=== PATIENT | female | born 1965 | race Caucasian/White ===

== ENCOUNTER → 2023-04-19 16:21 | Outpatient (REF) | payer BC, MEDICARE, SELFPAY | LOC: RAD 16:21 | PROVIDERS: ATTENDING PHYSICIAN Physician Assistant | DX: M79.89 Other specified soft tissue disorders (principal); Z98.890 Other specified postprocedural states; R60.0 Localized edema; M14.672 Charcot's joint, left ankle and foot | CPT/HCPCS: 73630; 93971 ==

== ENCOUNTER → 2023-04-30 12:00 | Outpatient (REF) | payer BC, MEDICARE, SELFPAY | LOC: DHSLP 12:00 | PROVIDERS: ATTENDING PHYSICIAN Physician Assistant | DX: G47.33 Obstructive sleep apnea (adult) (pediatric) (principal) | CPT/HCPCS: 95800 ==

== ENCOUNTER → 2023-10-29 13:16 | Outpatient (REF) | payer BC, MEDICARE, SELFPAY | LOC: HWRCS 13:16 | PROVIDERS: ATTENDING PHYSICIAN Family Medicine | DX: R06.02 Shortness of breath (principal); E11.610 Type 2 diabetes mellitus with diabetic neuropathic arthropathy; I10 Essential (primary) hypertension; Z12.31 Encounter for screening mammogram for malignant neoplasm of breast | CPT/HCPCS: 93005; 93306 ==

== ENCOUNTER → 2024-01-05 07:37 | Outpatient (REF) | payer BC, MEDICARE, SELFPAY | LOC: DHCBC/DCA 07:37 | PROVIDERS: ATTENDING PHYSICIAN Internal Medicine Cardiovascular Disease; FAMILY PHYSICIAN Family Medicine | DX: R06.00 Dyspnea, unspecified (principal) | CPT/HCPCS: 78452; 93017; A9500; J2785 ==

== ENCOUNTER → 2024-03-06 13:40 | Outpatient (REF) | payer BC, MEDICARE, SELFPAY | LOC: HWRAD 13:40 | PROVIDERS: ATTENDING PHYSICIAN Podiatrist Foot & Ankle Surgery; FAMILY PHYSICIAN Family Medicine | DX: L97.512 Non-pressure chronic ulcer of other part of right foot with fat layer exposed (principal); M14.671 Charcot's joint, right ankle and foot | CPT/HCPCS: 73630 ==

== ENCOUNTER → 2024-04-20 07:53 | Outpatient (REF) | payer BC, MEDICARE, SELFPAY | LOC: RAD 07:53 | PROVIDERS: ATTENDING PHYSICIAN Podiatrist Foot & Ankle Surgery; FAMILY PHYSICIAN Family Medicine | DX: E11.621 Type 2 diabetes mellitus with foot ulcer (principal); I70.234 Atherosclerosis of native arteries of right leg with ulceration of heel and midfoot; I70.235 Atherosclerosis of native arteries of right leg with ulceration of other part of foot; M86.171 Other acute osteomyelitis, right ankle and foot; M86.172 Other acute osteomyelitis, left ankle and foot | CPT/HCPCS: 73630; 93922; 93925 ==

== ENCOUNTER → 2024-09-04 12:23 | Outpatient (REF) | payer BC, SELFPAY | LOC: RAD 12:23 | PROVIDERS: ATTENDING PHYSICIAN Physician Assistant | DX: M79.662 Pain in left lower leg (principal); R60.0 Localized edema; Z86.718 Personal history of other venous thrombosis and embolism | CPT/HCPCS: 93971 ==

== ENCOUNTER 2024-10-18 05:01 | Inpatient (IN) | payer BC, MEDICARE, SELFPAY ==
[2024-10-17 21:13] VITALS: BP 192/89
[2024-10-18] VITALS (13 sets, daily range): BP systolic 129–189; BP diastolic 60–92; BMI 50.0; BMI 49.4
[2024-10-18 01:32] LABS: Hematocrit 33.2 % (37.0-47.0); Hemoglobin 11.4 g/dL (12.0-16.0); Mean Corp Hgb Conc. 34.3 g/dL (33.0-37.0); Mean Corpuscular Volume 78.1 fL (81.0-99.0); Nucleated Red Blood Cells % 0 %; Platelet Count 199 10^3/uL (130-400); Red Cell Dist. Width 15.4 % (11.5-14.5)
[2024-10-18 01:56] LABS: ALT (SGPT) 20 U/L (0-35); AST (SGOT) 30 U/L (14-36); Albumin 3.8 g/dl (3.5-5.0); Alkaline Phosphatase 92 U/L (38-126); Blood Urea Nitrogen 26 mg/dl (7-17); Calcium 8.5 mg/dl (8.4-10.2); Carbon Dioxide 26 mmol/L (22-30); Chloride 101 mmol/L (98-107); Estimated Creatinine Clearance 75 ml/min; Glucose 180 mg/dl (70-99); Potassium 4.5 mmol/L (3.5-5.1); Sodium 134 mmol/L (135-145); Total Protein 6.5 g/dl (6.3-8.2); eGFR 51.82
--- NOTE | 2024-10-18 02:36 | ED.GENMED ---
History of Present Illness
General
Chief Complaint: Musculo-Skeletal Complaint
Source: patient
Exam Limitations: none
Time Seen by Provider: 10/18/24 02:14
Nursing documentation reviewed up to this point in time: agreed with
History of Present Illness
History of Present Illness:
Note:
CHIEF COMPLAINT(S)
Right foot ulcer with swelling and fever.
HISTORY OF PRESENT ILLNESS
The patient is a 59-year-old female with a history of diabetes, presenting with a right foot ulcer that has been persistently swollen and recently developed fever. The ulcer location is at the edge of the right fifth toe. She has been under the care
of Dr. Shelby Levin for previous issues with other toes. The patient mentioned that the swelling has been present on and off for a while, specifically in relation to the ulcer. She reports being on antibiotics for a recent urinary tract
infection, but not specifically for the foot condition. The ulcerated area on the right fifth toe is notably swollen, and she has previously had issues with balance due to tendon cuts to her toes. She expressed concern about the possibility of a
bone infection.
PAST MEDICAL AND SURGICAL HISTORY
The patient has a significant history of diabetes managed with insulin since 2005.
SOCIAL DETERMINANTS AFFECTING HEALTH
The patient experiences difficulty with balance due to tendon cuts, which may impact mobility and fall risk.
MEDICATIONS
The patient is currently on an antibiotic for a urinary infection and on insulin for diabetes management.
REVIEW OF SYSTEMS
- Skin: Presence of an ulcer on the right fifth toe with noted swelling and fever.
- Respiratory: Reports no trouble breathing, though she experiences windedness on exertion.
- Cardiovascular: No leg swelling reported.
- Gastrointestinal: No issues reported.
- Musculoskeletal: Reports of previous balance issues due to tendon cuts.
PHYSICAL EXAM
General: Alert, no acute distress.
Skin: Ulcer present on the right fifth toe with associated swelling.
Cardiovascular: No edema in left extremities.
Respiratory: Respirations are non-labored.
Gastrointestinal: Abdomen nondistended.
Musculoskeletal: Noticeable swelling and ulceration of the right fifth toe. Previous surgical intervention with tendon cuts affecting balance.
Neurological: No focal neurological deficit observed.
PROBLEM LIST
Acute Problems:
- Right foot ulcer with swelling and suspected infection.
- Fever associated with right foot ulcer.
Chronic Problems:
- Diabetes mellitus, insulin-dependent.
PLAN
- Obtain x-ray imaging of the right foot to evaluate for potential osteomyelitis.
- Initiate intravenous antibiotics to address suspected infection.
- Admission to the hospital for further management and monitoring of the infection.
DIFFERENTIAL DIAGNOSIS
The Differential Diagnosis includes, in no particular order and is not limited to:
- Osteomyelitis
- Diabetic foot infection
- Cellulitis
- Peripheral arterial disease
- Venous insufficiency
- Neuropathy-related ulcer
- Charcot foot
- Septic arthritis
- Gout
- Thrombophlebitis
CARE-UPDATE
10/18/24 - 02:51
Patient admitted under internal medicine, hospitalist service for diabetic foot infection involving the right toe with suspected osteomyelitis. Initiated on IV zosyn and Vancomycin. Monitor for signs of improvement or complications such as systemic
infection. Potential surgical consultation if no improvement observed with medical management. Continue blood glucose control and monitor renal function due to antibiotic regimen.
Disposition:
SUMMARY OF ENCOUNTER
The patient, a 59-year-old female with a history of diabetes, presented to the emergency department with an ulcer on the right fifth toe, accompanied by swelling and fever. Her medical history includes insulin-dependent diabetes and previous tendon
cuts affecting balance. Concern for a possible bone infection prompted further evaluation. An x-ray was ordered to assess for potential osteomyelitis, and intravenous antibiotics were initiated to address the suspected infection.
DISPOSITION
Admit to hospitalist service for further management of diabetic foot infection and suspected osteomyelitis.
ASSESSMENT
Suspected diabetic foot infection with associated fever and potential for osteomyelitis.
EMERGENCY TREATMENTS ADMINISTERED
Initiated intravenous antibiotics with zosyn and Vancomycin to treat the suspected infection.
MANAGEMENT OF THE PATIENTS CARE WAS DISCUSSED WITH
Hospitalist service for continuation of care in the hospital setting.
PLAN
Hospital admission for intravenous antibiotic therapy, monitoring for systemic signs of infection, and potential surgical consultation if medical management does not lead to improvement. Continue strict blood glucose control to aid in the healing
process.
INDEPENDENT REVIEW OF LABS AND INTERPRETATION OF TESTS
My independent review of x-rays indicates evaluation for osteomyelitis.
MEDICATION RECONCILIATION
Intravenous zosyn and Vancomycin were administered to target the suspected foot infection.
MEDICAL DECISION MAKING
- Number and Complexity of Problems Addressed: Chronic conditions affecting care include diabetes mellitus requiring insulin therapy. Differential diagnosis includes osteomyelitis, diabetic foot infection, cellulitis, peripheral arterial disease,
neuropathy-related ulcer, and Charcot foot.
- Data:
Category 1:
Lab tests and imaging ordered and reviewed included x-ray of the right foot to evaluate for potential osteomyelitis.
Category 3:
Discussion of management with hospitalist for inpatient care coordination.
- Risk: The high risk of complications associated with a diabetic foot infection, potential progression to osteomyelitis, and the need for intravenous antibiotics mandated hospitalization for effective management.
DIAGNOSIS
Right diabetic foot ulcer with suspected infection (ICD-10: E11.621), fever (ICD-10: R50.9), suspected osteomyelitis (ICD-10: M86.9).
Past History
Past History
ED Past Medical History: Asthma and IDDM
ED Past Surgical History: Cholecystectomy, and Other (Hernia repair )
Social History
Tobacco: Non-smoker
Alcohol: None
Drug: None
Personal:
Living: with family
Employment: Employed
Family History
Family History: Diabetes and Other (Noncontributory )
Phy Exam
Physical Exam
Physical Exam:
.
Course
Orders/Labs/Results
Orders:
Orders
10/17/24 21:18
Complete Blood Count/With Diff Urgent
Comprehensive Metabolic Panel Urgent
Lactic Acid Urgent
Blood Culture Urgent
RUBENS Source: Blood/Venous
Specimen Description:
10/18/24 02:27
CR Foot - Right Min 3 Views Urgent
Comment:
Reason For Exam: right foot swelling, 5th toe infection
10/18/24 02:47
Piperacillin/Tazo 4.5 Gram [Zosyn] 4.5 gram in 100 ml IV NOW
Vancomycin [Vancocin] 2,000 mg 0.9% Sodium Chloride 500 ml [Nss] 500 ml IV NOW
Abnormal Lab Results
10/18/24
01:21
Hgb 11.4 L g/dL
(12.0-16.0)
Hct 33.2 L %
(37.0-47.0)
MCV 78.1 L fL
(81.0-99.0)
MCH 26.8 L pg
(27.0-31.0)
RDW 15.4 H %
(11.5-14.5)
Neutrophils % 78.6 H %
(42.2-75.2)
Lymphocytes % 15.2 L %
(20.5-51.1)
Sodium 134 L mmol/L
(135-145)
BUN 26 H mg/dl
(7-17)
Creatinine 1.2 H mg/dL
(0.6-1.0)
Glucose 180 H mg/dl
(70-99)
Total Bilirubin 1.4 H mg/dl
(0.2-1.3)
10/18/24 01:21
10/18/24 01:21
Vital Signs
Initial and Last Documented VS:
Initial Vital Signs
Temp Pulse Resp BP Pulse Ox
99.3 F 106 20 192/89 99
10/17/24 21:13 10/17/24 21:13 10/17/24 21:13 10/17/24 21:13 10/17/24 21:13
Last Documented Vital Signs
Temp Pulse Resp BP Pulse Ox
99.3 F 98 23 175/69 93
10/17/24 21:13 10/18/24 02:00 10/18/24 02:00 10/18/24 01:00 10/18/24 02:36
*Pulse Oximetry
SaO2: 93
Oxygen Mode of Delivery: Room air
Patient hypoxic: no
*Critical Care Note
Total Time (30-74mins, 75-104mins- exclusive of procedures): Not Applicable
ED Attending Note
-
Portions of this chart may have been created with voice recognition software.� Occasional wrong word or��sound alike� substitutions may have occurred due to the inherent limitations of voice recognition software.
Discharge Plan
Departure
Patient Disposition: Admit
Date of Disposition: 10/18/24
Time of Disposition: 02:46
Admit to: Med/Surg
Presentation/result/management discussed w/ accepting MD/DO: Hospitalist
Patient with high blood pressure during this ER visit?: Yes
Condition: Fair
Discharge Problem:
Diabetic infection of right foot
Prescriptions:
No Action
gabapentin 300 MG capsule
600 mg PO TID
lisinopril 20 mg Tablet
20 mg PO DAILY
chlorthalidone 25 mg Tablet
12.5 mg PO DAILY
citalopram 20 mg Tablet
20 mg PO DAILY
levothyroxine 50 mcg Tablet
50 mcg PO DAILY
insulin lispro [Humalog KwikPen Insulin] 100 unit/mL Insulin Pen
22 unit SC TID
Patient Comments:
Patient takes 22-28 units usually.
insulin glargine [Lantus Solostar U-100 Insulin] 100 unit/mL (3 mL) Insulin Pen
36 unit SC QPM
rosuvastatin 40 mg Capsule, Sprinkle
40 mg PO DAILY
simethicone [Gas Free Extra Strength] 125 mg Capsule
125 mg PO DIRECTED
bisacodyl [Dulcolax (bisacodyl)] 5 mg Tablet,Delayed Release (Dr/Ec)
5 mg PO DIRECTED
Linzess 72 mcg Capsule
72 mcg PO DIRECTED
Patient Comments:
Patient was instructed to take 3 days prior daily.
Sutab 1.479-0.188- 0.225 gram Tablet
PO DIRECTED
Referrals:
Joy Muller MD [Family Provider, Family Practice]
Interventions
Interventions:
*Risk Screen - Suicide Last Done: 10/17/24 21:17
*General Assessment Last Done: 10/18/24 01:03
*Neglect/Abuse Screening Last Done: 10/17/24 21:17
*ED- Fall Risk Assessment Last Done: 10/18/24 01:03
*ED COVID-19 Vaccine History Last Done: 10/18/24 01:03
ED-Musculoskeletal Assessment Last Done: 10/18/24 01:02
Discharge Date and Time
Print Language: MALTESE
[2024-10-18] MEDS: ZOSYN 100 IV (03:09)
[2024-10-18] MEDS: VANCOCIN 540 MG IV (03:53)
--- NOTE | 2024-10-18 04:46 | HPS.HSE ---
Family Physician
-
Family Physician: Joy Muller
Chief Complaint
-
R Foot Wound
History of Present Illness
Patient is a 59y F with PMH significant for Charcot foot, DM-II, morbid obesity and DIONNA who presents to ED complaining of R foot wound. Patient states that she has Charcot foot bilaterally and has been followed by Podiatry for foot wounds on
either foot since February 2024. Most recently, her L foot is healing very well and most of the wound care focus has been on a wound on the lateral aspect of the R foot. She is seen by Podiatry every two weeks for evaluation. Family assists her
with dressing changes at home daily. Patient states that she felt chilled yesterday and thought it was due to sitting near the AC unit. Today she felt fatigued and generally poor. Her son changed her dressing and a large amount of grossly
purulent discharge was expressed from the wound. Patient states she had headache, dizziness, and chills. She spoke with Dr. Levin and was advised to present to the ED for further evaluation.
Medical History
Past Medical History
Past Medical History: Reports Other
Additional Past Medical History:
Charcot Joint Bilaterally
DM-II
Morbid Obesity
Uterine Cancer
Hypothyroidism
Migraine Headaches
Ventral Abdominal Hernia
Past Surgical History: Reports Other
Additional Past Surgical History:
D&C
Hysterectomy
Cholecystectomy
Multiple Ventral hernia Repairs
Labial Cyst excision
Left Foot ORIF with Retained Hardware
Social History
Tobacco: Non-smoker
Alcohol: None
Drug: None
Family History
Family History: Not pertinent
Allergies / Home Medications
Allergies reflects when Allergies were last updated in [employer].
Home Medications with original date entered in [employer]
Allergy/Medication List:
Allergies
Allergy/AdvReac Type Severity Reaction Status Date / Time
adhesive tape Allergy Unknown Blistering Verified 10/17/24 21:15
skin
Home Medications
insulin glargine 100 unit/mL (3 mL) subcutaneous pen (Lantus Solostar U-100 Insulin) 33 unit SC QPM 07/07/22
insulin lispro 100 unit/mL subcutaneous pen (Humalog KwikPen (U-100) Insulin) 22 unit SC TID 07/07/22
levothyroxine 50 mcg tablet 50 mcg PO DAILY 07/07/22
lisinopril 20 mg tablet 30 mg PO DAILY 07/07/22
evolocumab 140 mg/mL subcutaneous pen injector (Repatha SureClick) 140 mg SC Q2W 10/18/24
ezetimibe 10 mg tablet 10 mg PO DAILY 10/18/24
rosuvastatin 40 mg tablet 40 mg PO DAILY 10/18/24
torsemide 20 mg tablet 20 mg PO BID 10/18/24
Review of Systems
-
History Source: Patient
A 12 point ROS was completed and negative except as noted: Yes
Constitutional: Reports Fatigue and Chills; Denies Fever
EENT: Denies Sore Throat
Respiratory: Denies Cough or Trouble Breathing
Cardiac: Denies Chest Pain or Palpitations
Abdomen/GI: Denies Abdominal Pain, Nausea, Vomiting or Diarrhea
: Denies Dysuria, Frequency or Flank Pain
Musculoskeletal: Reports Edema; Denies Joint Pain
Skin: Reports Other (Wound R foot)
Neurological: Reports Dizzy, Headache and Weakness
Psych: Denies Depression or Anxiety
Physical Exam
Vital Signs
Vital Signs
Temp Pulse Resp BP Pulse Ox
99.3 F 101 18 129/62 97
10/17/24 21:13 10/18/24 03:12 10/18/24 03:12 10/18/24 04:00 10/18/24 04:00
Physical Exam
General: Other (59y F in no acute distress.)
HEENT: Moist mucous membranes and Other (Thick neck.)
Respiratory: Other (Decreased at bases - otherwise clear)
Cardiac: S1/S2, Regular Rhythm and Murmur (II/ KURT)
GI: Soft, Non Tender, Non Distended and Normal Bowel Sounds
Musculoskeletal: Other (b/l LE edema. R foot with dressing over lateral aspect of the foot - no strikethrough. R lower leg warm with mild erythema.)
Neuro: AO x 3
Laboratory Results
-
10/18/24 01:21
10/18/24 01:21
Laboratory Results
Lactic Acid 1.4 mmol/L (0.7-2.0) 10/18/24 01:42
Total Bilirubin 1.4 mg/dl (0.2-1.3) H 10/18/24 01:21
AST 30 U/L (14-36) 10/18/24 01:21
ALT 20 U/L (0-35) 10/18/24 01:21
Alkaline Phosphatase 92 U/L (38-126) 10/18/24 01:21
Impression/Plan
-
A/P: Patient is a 59y F with PMH significant for DM-II, Charcot foot and morbid obesity who presents to ED complaining of R foot wound and shaking chills.
Diabetic Foot Wound
Sepsis secondary to the above
Charcot Joint
- Admit for further evaluation and treatment.
- Patient presents with tachycardia, tachypnea and R foot wound with purulent discharge.
- Empiric abx for now and follow for any operative culture data.
- IVFs support, antipyretics, etc.
- Podiatry evaluation for additional recommendations / possible I&D.
DM-II
- Stable. Continue basal insulin at decreased dose for now.
- Follow glucose and cover with SSI as needed.
- Update A1C.
Chronic Lymphedema
- Hold diuretic regimen acutely given sepsis.
Morbid Obesity
DIONNA on CPAP
- Affects all aspects of care.
- Encourage healthy diet and increased activity with goal of weight loss.
- Continue nightly PAP therapy.
DVT Prophylaxis: Lovenox
Code Status: Full
[2024-10-18] MEDS: TYLENOL 650 MG PO ×2 (07:21→16:09)
--- NOTE | 2024-10-18 08:05 | W.PN.HOSP.TC ---
Today's Communication/Plan
-
Continue antibiotics
Recheck AM Labs
Assessment / Plan
Assessment / Plan
Physical Exam
General: Not in acute distress
HEENT: Normocephalic. Moist mucous membranes
Respiratory: Other (Decreased at bases - otherwise clear)
Cardiac: S1/S2, Regular Rhythm and Murmur (II/ KURT)
GI: Soft, Non Tender, Non Distended and Normal Bowel Sounds
Musculoskeletal: Other (b/l LE edema. R foot with dressing over lateral aspect of the foot. R lower leg warm with mild erythema.)
Neuro: AAO x 3
Assessment/Plan
59 y/o female with past medical history significant for Charcot foot, DM-II, morbid obesity and DIONNA who presented to [facility] ED complaining of right foot wound. Patient stated that she has Charcot foot bilaterally and has been followed by Podiatry for
foot wounds on either foot since February 2024. Most recently, her L foot is healing very well and most of the wound care focus has been on a wound on the lateral aspect of the R foot. She is seen by Podiatry every two weeks for evaluation. Family
assists her with dressing changes at home daily. Patient stated that she felt chilled the day before coming in, and thought it was due to sitting near the AC unit. On 10/17/24, she felt fatigued and generally poor. Her son changed her dressing and
a large amount of grossly purulent discharge was expressed from the wound. Patient stated she had headache, dizziness, and chills. She called her bridge painter Dr. Levin and was advised to present to the ED for further evaluation.
Diabetic Foot Wound
Sepsis secondary to the above
Charcot Joint
- Patient presented with tachycardia, tachypnea and R foot wound with purulent discharge.
- Continue Vancomycin and Zosyn
- IVFs support, antipyretics, etc.
- Podiatry evaluation for additional recommendations / possible I&D.
- ID consulted
Suspected Acute Kidney Injury
- Continue IV fluids
- Hold home Lisinopril for now
- PRN Hydralazine added
- Will consider adding Amlodipine
DM-II
- Continue basal insulin at decreased dose and also continued moderate sliding scale Insulin.
- Follow glucose and cover with SSI as needed.
- Goal glucose in hospital 140-180, will strive to achieve that goal but will also need to prevent hypoglycemia
Chronic Lymphedema
- Hold diuretic regimen acutely given sepsis.
Morbid Obesity
DIONNA on CPAP
- Affects all aspects of care.
- Encourage healthy diet and increased activity with goal of weight loss.
- Continue nightly PAP therapy.
DVT Prophylaxis: Lovenox
Code Status: Full Code
Anticipated Discharge: > 48 hours
Subjective/Interval History
-
Date of Service: October 18, 2024
Patient was seen and examined. She reported having fever, but denied any other significant symptoms or complaints.
Objective Data
-
Labs:
Laboratory Results
10/18/24
01:21
WBC 8.2
Hgb 11.4 L
Hct 33.2 L
Plt Count 199
Sodium 134 L
Potassium 4.5
Chloride 101
Carbon Dioxide 26
BUN 26 H
Creatinine 1.2 H
Glucose 180 H
Calcium 8.5
Total Bilirubin 1.4 H
AST 30
ALT 20
Alkaline Phosphatase 92
Vital Signs:
Vital Signs
Temp Pulse Resp BP Pulse Ox
99.3 F 101 18 185/80 92
10/17/24 21:13 10/18/24 05:58 10/18/24 05:58 10/18/24 06:00 10/18/24 06:00
--- NOTE | 2024-10-18 09:34 | PHA.VAN.IN ---
Addendum entered and electronically signed by Bridgette Rivera Ryan 10/18/24 10:00:
Agree with assessment and plan
Original Note:
Assessment
- Assessment
Renal Function: SCR Appears Elevated from baseline
Concomitant Antimicrobials: piperacillin/tazobactam
Historical Micro: History of MRSA infection (L foot wound, October 2014)
Plan
- Plan
Initial / Loading Dose: received 2000mg load at 0353 this morning
Maintenance Regimen: give 1250mg x1 dose this evening, then dose by level starting tomorrow AM
Monitoring: Random level 10/19 06
Pharmacokinetics Vancomycin I
- -
Patient Age: 59
Patient Sex: Female
Vancomycin Day #: 1
Indication: Skin And Soft Tissue
Requesting Provider: Dr. Church
Pertinent Antimicrobial Allergies:
NKDA
Height / Weight:
Height 5 ft 7 in
Actual Weight 142.972 kg
Pertinent Past Medical History: T2DM, BMI ~49
- Vital Signs / Lab Results
Temp Pulse Resp BP Pulse Ox
98.8 F 95 20 157/79 95
10/18/24 08:00 10/18/24 08:00 10/18/24 08:00 10/18/24 08:00 10/18/24 08:00
Lab Results - Hematology
10/18/24
01:21
WBC 8.2
Lab Results - Chemistry
10/18/24
01:21
BUN 26 H
Creatinine 1.2 H
Estimated Creat Clear 75
Albumin 3.8
10/18/24
01:42
Lactic Acid 1.4
--- NOTE | 2024-10-18 10:45 | CON.ID ---
Consultation
-
Date/Time Consultation Requested: October 18, 2024 0808
Date/Time Consultation Performed: October 18, 2024 1045
Requesting Provider: Dr. Alexander Corea
Performing Provider: Dr. Sheri Prajapati
Reason for Consultation: Foot infection
Chief Complaint / Past History
Chief Complaint
Wound drainage
History of Present Illness
59-year-old female with history of diabetes mellitus, neuropathy, Charcot arthropathy, chronic foot wounds who presented to the hospital last night due to worsening right foot wound. When her son changed the dressing, she noted purulent drainage
from the right fifth toe wound. She had chills with subjective fever. She was therefore instructed to come to the ER. Her glucose has been high lately. No other complaints..
Past History
Additional Past Medical History:
Diabetes mellitus type 2
neuropathy
Bilateral Charcot arthropathy
Hypothyroidism
Migraine headaches
Class III obesity BMI 49
Sleep apnea on CPAP
History of left foot ORIF
Uterine cancer status post hysterectomy
Ventral hernia repair
Cholecystectomy
Allergy History:
adhesive tape Allergy (Unknown, Verified 10/17/24 21:15)
Blistering skin
Medications Reviewed: Yes
Current Antibiotics:
Vancomycin
Zosyn
Social History
Tobacco: Non-Smoker
Alcohol: None
Drug: None
Living: With Family
Family History
Family History: Not Pertinent
Review of Systems
Review of Systems
General: Fever, Chills and Change in Appetite
HEENT: Negative Sinus Problems or Headache
Cardiovascular: Negative Chest Pain
Respiratory: Negative Dyspnea or Cough
Gasteroenterology: Negative Nausea, Vomiting or Diarrhea
Genital / Urological: Negative Dysuria or Flank Pain
Endocrine: Weakness
All systems: All other systems were reviewed and were negative
Vital Signs
Temp Pulse Resp BP Pulse Ox
98.8 F 95 20 157/79 95
10/18/24 08:00 10/18/24 08:00 10/18/24 08:00 10/18/24 08:00 10/18/24 08:00
Physical Exam
Physical Exam
Constitutional: No Acute Distress and Comfortable
Eyes: No Conjunctival Hemorrhage and Sclera Anicteric
Cardiovascular: Regular Rate and S1/S2
Pulmonary: Clear
Gastrointestinal: Soft, Non Tender, Non Distended and Normal Bowel Sounds
Extremities: Negative Edema
Wound: Other (Right fifth toe + erythema/edema, wound on lateral part of toe with scan yellow drainage; 2nd wound on 5th lateral met head dry)
Neurological: AO x 3
Lab / Diagnostic Study Results
10/18/24 01:21
10/18/24 01:21
Abs Immat Gran (auto) 0.0 10^3/uL (0-0.05) 10/18/24 01:21
Absolute Neuts (auto) 6.4 10^3/uL (1.4-6.5) 10/18/24 01:21
Absolute Lymphs (auto) 1.2 10^3/uL (1.2-3.4) 10/18/24 01:21
Absolute Monos (auto) 0.4 10^3/uL (0.1-0.6) 10/18/24 01:21
Absolute Basos (auto) 0.0 10^3/uL (0-0.2) 10/18/24 01:21
Immature Gran % 0.4 % (0-0.5) 10/18/24 01:21
Neutrophils % 78.6 % (42.2-75.2) H 10/18/24 01:21
Lymphocytes % 15.2 % (20.5-51.1) L 10/18/24 01:21
Monocytes % 5.3 % (1.7-9.3) 10/18/24 01:21
Eosinophils % 0.1 % (0-6) 10/18/24 01:21
Basophils % 0.4 % (0-2) 10/18/24 01:21
Lactic Acid 1.4 mmol/L (0.7-2.0) 10/18/24 01:42
Microbiology Results
Micro:
10/18/24 09:12 Blood Culture - Pending
Blood/Venous
10/18/24 01:42 Blood Culture - Pending
Blood/Venous
10/18/24 R foot XRAY: No gross acute focal cortical bony destructive process.
Assessment / Plan
# Right 5th toe diabetic ulcer with infection and purulent cellulitis
- Podiatry to eval
- Ordered arterial duplex
- Agree with Vancomycin and Zosyn for now.
- Follow temps/wbc.
- Recommend tight glucose control
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
Diabetes mellitus type 2
neuropathy
Bilateral Charcot arthropathy
Hypothyroidism
Migraine headaches
Class III obesity BMI 49
Sleep apnea on CPAP
History of left foot ORIF
Uterine cancer status post hysterectomy
Ventral hernia repair
Cholecystectomy
[2024-10-18] MEDS: NOVOLOG FLEXPEN-MODERATE RESISTANCE SC (11:04)
[2024-10-18] MEDS: NSS 1000 IV (11:12)
[2024-10-18] MEDS: ZOSYN 50 IV ×3 (11:13→20:15)
[2024-10-18] MEDS: LOVENOX 40 MG SC ×2 (11:16→20:16)
--- NOTE | 2024-10-18 12:30 | CM ---
Reviewed the chart notes and spoke with the patient at the bedside. The patient resides with her spouse and son in a split level home with one step to enter from driveway. The patient has a rollator, shower chair, shower rails, CPAP, and cane.
The patient has not been to SNF. The patient confirmed her pharmacy of choice is the [facility]. CM continues to be available to patient/family and is monitoring medical plan for needs at discharge.
Plan: Discharge plans will depend on the patient's progress.
--- NOTE | 2024-10-18 12:33 | WOUNDNOTE ---
RIGHT 5TH TOE, RIGHT MTH FOOT
--- NOTE | 2024-10-18 12:34 | WOUNDNOTE ---
LEFT 5TH TOE
--- NOTE | 2024-10-18 12:34 | WOUNDNOTE ---
BILATERAL LOWER LEGS
--- NOTE | 2024-10-18 12:35 | WOUNDNOTE ---
[facility] RN note: Patient admitted with diabetic foot infection.
See H&P for complete history.
PMH:59-year-old female with history of diabetes mellitus, neuropathy, Charcot arthropathy, chronic foot wounds who presented to the hospital last night due to worsening right foot wound.
Wound Location and type/assessment: Patient admitted with: R 5th toe lateral diabetic wound, drainage cloudy, residual old blister surrounding. Wound culture done as requested, nurse Romana given and will send to lab. Distal to open wound is dry
eschar. L lateral foot with chronic callus, no drainage. Heels intact, + pedal pulses audible with Doppler. Turns self in bed, sacrum intact. Patient states she goes to Dr. Levin for foot wounds, Podiatry consulted.
Appetite: Good.
Pressure redistribution devices in place: Accumax
Plan: Local wound care applied, defer to podiatry for additional wound and offloading management, will assist as needed. Will confirm orders with hospitalist and updated nurse.
Updated care plan and will follow as needed.
Note to case management of equipment requested for discharge: none
Recommend follow up with Podiatry.
[2024-10-18 12:44] LABS: Glucose - Point of Care 240 mg/dl (70-99)
[2024-10-18] MEDS: NOVOLOG FLEXPEN-MODERATE RESISTANCE 3 UNITS SC (14:54)
--- NOTE | 2024-10-18 15:41 | CON.MD ---
Consultation - Medical
-
Patient is a 59y diabetic Female well known to me for treatment of multiple DFU with PMH significant for Charcot foot, NIDDM with profound peripheral neuropathy who called 10/17/24 at 8 pm and stated she had shaking chills, LAUREANO, Nausea and general
malaise and purulence was from the right foot wound that had previously been nearly healed. I recommended she present to ED for admission for IV abt, and possible debridement.
Medical History
Past Medical History
Past Medical History: Reports Other
Additional Past Medical History:
Charcot Joint Bilaterally
DM-II
Morbid Obesity
Uterine Cancer
Hypothyroidism
Migraine Headaches
Ventral Abdominal Hernia
Past Surgical History: Reports Other
Additional Past Surgical History:
D&C
Hysterectomy
Cholecystectomy
Multiple Ventral hernia Repairs
Labial Cyst excision
Left Foot ORIF with Retained Hardware
Social History
Tobacco: Non-smoker
Alcohol: None
Drug: None
Lives at home with family
Family History
Family History: Not pertinent
Allergies / Home Medications
Allergies reflects when Allergies were last updated in [employer].
Home Medications with original date entered in [employer]
Allergy/Medication List:
Allergies
Allergy/AdvReac Type Severity Reaction Status Date / Time
adhesive tape Allergy Unknown Blistering Verified 10/17/24 21:15
skin
Home Medications
insulin glargine 100 unit/mL (3 mL) subcutaneous pen (Lantus Solostar U-100 Insulin) 33 unit SC QPM 07/07/22
insulin lispro 100 unit/mL subcutaneous pen (Humalog KwikPen (U-100) Insulin) 22 unit SC TID 07/07/22
levothyroxine 50 mcg tablet 50 mcg PO DAILY 07/07/22
lisinopril 20 mg tablet 30 mg PO DAILY 07/07/22
evolocumab 140 mg/mL subcutaneous pen injector (Repatha SureClick) 140 mg SC Q2W 10/18/24
ezetimibe 10 mg tablet 10 mg PO DAILY 10/18/24
rosuvastatin 40 mg tablet 40 mg PO DAILY 10/18/24
torsemide 20 mg tablet 20 mg PO BID 10/18/24
Review of Systems
-
History Source: Patient
A 12 point ROS was completed and negative except as noted: Yes
Constitutional: Reports Fatigue and Chills; Denies Fever
EENT: Denies Sore Throat
Respiratory: Denies Cough or Trouble Breathing
Cardiac: Denies Chest Pain or Palpitations
Abdomen/GI: Denies Abdominal Pain, Nausea, Vomiting or Diarrhea
: Denies Dysuria, Frequency or Flank Pain
Musculoskeletal: Reports Edema; Denies Joint Pain
Skin: Reports Other (Wound R foot)
Neurological: Reports Dizzy, Headache and Weakness
Psych: Denies Depression or Anxiety
Physical Exam
Vital Signs
Vital Signs
Temp Pulse Resp BP Pulse Ox
99.3 F 101 18 129/62 97
10/17/24 21:13 10/18/24 03:12 10/18/24 03:12 10/18/24 04:00 10/18/24 04:00
Physical Exam
General: Other (59y F in no acute distress.)
LE focused:
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 Wound right 5th toe has dishwater brown drainage, ecchymosis to the plantar sulcus.
Lateral 5th met wound is necrotic and unstageable- the wounds do not appear to probe beyond fascia there is no bone palpable or exposed. no undermining or tunneling. left 5th toe wound is also intact but cyanotic. Deformity of B/L feet second to
charcot arthropathy. Absent protective sensation.
Laboratory Results
-
Laboratory Results
Lactic Acid 1.4 mmol/L (0.7-2.0) 10/18/24 01:42
Total Bilirubin 1.4 mg/dl (0.2-1.3) H 10/18/24 01:21
AST 30 U/L (14-36) 10/18/24 01:21
ALT 20 U/L (0-35) 10/18/24 01:21
Alkaline Phosphatase 92 U/L (38-126) 10/18/24 01:21
Impression/Plan:
1- NIDDM w/poor BS control
2-NIDDM with DPN/LOPS
3-B/L foot deformity/ charcot arthropathy
4-Gait dysfunction
5-Chronic non healing DFU B/L 5th toes and right lateral 5th MTH with acute infection/cellulitis
- Wounds were cleansed and sharply and excisionally debrided today at bedside with #11 scalpel blade through epidermis, dermis into sq and fascia. Wounds again cleansed and deep cx taken. There is no tunneling or deep abscess noted. Bleeding
controlled with pressure. Wounds redressed with vashe wet dressing. Will begin mupirocin ointment to wounds post vashe dressing to all wounds. Offload lateral sides of feet with pillows under calves.
- XRAYs reviewed and appear questionable for OM to the 5th met head and base of the 5th toe, MRI ordered.
-Continue IV ABT for now, will follow for cultures
Consultation
-
Date/Time Consultation Requested: 10/18/2024 @ 8 09
Date/Time Consultation Performed: 10/18/2024 @ 1400
Requesting Provider: Dr Alexander Ogden
Performing Provider: Dr Melissa Levin
Reason for Consultation: Cellulitis right foot
[2024-10-18 17:01] LABS: Glucose - Point of Care 256 mg/dl (70-99)
[2024-10-18] MEDS: APRESOLINE 5 MG IV (17:33)
[2024-10-18] MEDS: VANCOCIN 275 MG IV (17:33)
[2024-10-18] MEDS: LANTUS 0.24 UNITS SC (17:35)
[2024-10-18] MEDS: NOVOLOG FLEXPEN-MODERATE RESISTANCE 5 UNITS SC (17:35)
[2024-10-18 20:58] LABS: Glucose - Point of Care 269 mg/dl (70-99)
[2024-10-18] MEDS: DESENEX/MITRAZOL/ZEASORB 1 APPLIC TOPICAL (21:43)
[2024-10-19] VITALS (8 sets, daily range): BP systolic 140–192; BP diastolic 64–94; BMI 49.1
[2024-10-19] MEDS: NSS 1000 IV ×2 (01:01→08:19)
[2024-10-19] MEDS: ZOSYN 50 IV ×4 (01:04→19:39)
[2024-10-19] MEDS: TYLENOL 650 MG PO ×2 (04:13→19:40)
[2024-10-19] MEDS: APRESOLINE 5 MG IV (04:14)
[2024-10-19] MEDS: SYNTHROID 75 MCG PO (04:18)
[2024-10-19 07:45] LABS: Blood Urea Nitrogen 17 mg/dl (7-17); Calcium 8.2 mg/dl (8.4-10.2); Carbon Dioxide 25 mmol/L (22-30); Chloride 104 mmol/L (98-107); Estimated Creatinine Clearance 80 ml/min; Glucose 200 mg/dl (70-99); Potassium 4.1 mmol/L (3.5-5.1); Sodium 135 mmol/L (135-145); eGFR 57.52
[2024-10-19 08:04] LABS: Glucose - Point of Care 191 mg/dl (70-99)
[2024-10-19] MEDS: CRESTOR 40 MG PO (08:21)
[2024-10-19] MEDS: ZETIA 10 MG PO (08:30)
[2024-10-19] MEDS: LOVENOX 40 MG SC ×2 (08:31→19:41)
[2024-10-19] MEDS: NOVOLOG FLEXPEN-MODERATE RESISTANCE 1 UNITS SC (08:31)
[2024-10-19 08:34] LABS: Hematocrit 30.9 % (37.0-47.0); Hemoglobin 10.5 g/dL (12.0-16.0); Mean Corp Hgb Conc. 34.0 g/dL (33.0-37.0); Mean Corpuscular Volume 81.3 fL (81.0-99.0); Platelet Count 153 10^3/uL (130-400); Red Cell Dist. Width 15.4 % (11.5-14.5)
--- NOTE | 2024-10-19 08:49 | PHA.VAN.FU ---
Addendum entered and electronically signed by Bridgette Rivera [facility] 10/19/24 09:23:
Agree with assessment and plan
Original Note:
Vancomycin Assessment / Plan
- Assessment
Renal Function: SCR Decreasing
WBC's are: WNL
- Assessment - Therapeutic Drug Monitoring
Random Level: 13.5 - drawn ~13.5H after dose of 1250mg
- Dosing Plan
Dosing by Level: Re-dose today (give 1250mg x2 doses)
- Monitoring Plan
Random Level: 10/20 06
- Follow Up
Pharmacy will continue to follow.
Vancomycin Follow UP
- -
Patient Age: 59
Patient Sex: Female
Vancomycin Day #: 2
Indication: Skin And Soft Tissue
Requesting Provider: Dr. Church
Pertinent Antimicrobial Allergies:
NKDA
Height / Weight:
Height 5 ft 7 in
Actual Weight 141.929 kg
Pertinent Past Medical History: T2DM, BMI ~49
- Vital Signs / Lab Results
Temp Pulse Resp BP Pulse Ox
99.7 F 88 16 152/64 94
10/19/24 03:18 10/19/24 05:45 10/19/24 03:18 10/19/24 05:45 10/19/24 03:18
Lab Results - Hematology
10/18/24 10/19/24
01:21 06:54
WBC 8.2 6.2
Lab Results - Chemistry
10/18/24 10/19/24
01:21 06:54
BUN 26 H 17
Creatinine 1.2 H 1.1 H
Estimated Creat Clear 75 80
Albumin 3.8
10/18/24
01:42
Lactic Acid 1.4
Microbiology Results
10/18/24 01:42 Blood Culture - Preliminary
Blood/Venous Positive culture in progress
Gram Stain - Preliminary
Therapeutic Drug Monitoring
Random Vancomycin 13.5 ug/ml 10/19/24 06:54
--- NOTE | 2024-10-19 09:36 | W.PN.HOSP.TC ---
Addendum entered and electronically signed by Alexander Corea MD 10/19/24 17:50:
According to patient's outpatient nephrology office, patient's creatinine is Cr 0.9-1.1 at baseline; and on May 25, Cr was 1.47. Will resume Lisinopril given high blood pressure, and monitor renal function.
Original Note:
Today's Communication/Plan
-
See plan
Assessment / Plan
Assessment / Plan
Physical Exam
General: Not in acute distress
HEENT: Normocephalic. Moist mucous membranes
Respiratory: Other (Decreased at bases - otherwise clear)
Cardiac: S1/S2, Regular Rhythm and Murmur (II/ KURT)
GI: Soft, Non Tender, Non Distended and Normal Bowel Sounds
Musculoskeletal: Other (b/l LE edema. R foot with dressing over lateral aspect of the foot. R lower leg warm with mild erythema.)
Neuro: AAO x 3
Assessment/Plan
59 y/o female with past medical history significant for Charcot foot, DM-II, morbid obesity and DIONNA who presented to [facility] ED complaining of right foot wound. Patient stated that she has Charcot foot bilaterally and has been followed by Podiatry for
foot wounds on either foot since February 2024. Most recently, her L foot is healing very well and most of the wound care focus has been on a wound on the lateral aspect of the R foot. She is seen by Podiatry every two weeks for evaluation. Family
assists her with dressing changes at home daily. Patient stated that she felt chilled the day before coming in, and thought it was due to sitting near the AC unit. On 10/17/24, she felt fatigued and generally poor. Her son changed her dressing and
a large amount of grossly purulent discharge was expressed from the wound. Patient stated she had headache, dizziness, and chills. She called her high voltage electrician Dr. Levin and was advised to present to the ED for further evaluation.
Right 5th toe diabetic ulcer with infection and purulent cellulitis
Early osteomyelitis of the fifth digit distal phalanx as per MRI 10/19/24
S. aureus bacteremia
Sepsis secondary to the above
Charcot Joint
- Patient presented with tachycardia, tachypnea and R foot wound with purulent discharge.
- Continue Zosyn. Stop Vancomycin as per ID.
- Echo, given staph bacteremia
- IVFs support, antipyretics, etc.
- Podiatry evaluation for additional recommendations - podiatry debrided toe at bedside
- ID consulted
Suspected Acute Kidney Injury
- Slightly improving -- patient will find out her baseline creatinine from her vocational childcare teacher who is in [facility]
- Continue IV fluids
- Hold home Lisinopril for now
Hypertension
- PRN Hydralazine added
- Added small dose Amlodipine 2.5 mg BID
- Hold home Lisinopril given concern for ANISA
DM-II
- Continueed basal insulin at decreased dose and also continued moderate sliding scale Insulin
- Follow glucose and cover with SSI as needed.
- Goal glucose in hospital 140-180, will strive to achieve that goal but will also need to prevent hypoglycemia -- increased basal insulin dose 10/19/24 for better control+added premeal Insulin
Chronic Lymphedema
- Stable at this time
- Hold diuretic regimen acutely given sepsis.
Morbid Obesity
DIONNA on CPAP
- Affects all aspects of care.
- Encourage healthy diet and increased activity with goal of weight loss.
- Continue nightly PAP therapy.
DVT Prophylaxis: Lovenox
Code Status: Full Code
Anticipated Discharge: > 48 hours
Subjective/Interval History
-
Date of Service: October 19, 2024
Patient was seen and examined. She reported some fevers overnight, no other new significant symptoms or complaints.
Objective Data
-
Labs:
Laboratory Results
10/19/24
06:54
WBC 6.2
Hgb 10.5 L
Hct 30.9 L
Plt Count 153 D
Sodium 135
Potassium 4.1
Chloride 104
Carbon Dioxide 25
BUN 17
Creatinine 1.1 H
Glucose 200 H
Calcium 8.2 L
Vital Signs:
Vital Signs
Temp Pulse Resp BP Pulse Ox
99.7 F 88 16 152/64 94
10/19/24 03:18 10/19/24 05:45 10/19/24 03:18 10/19/24 05:45 10/19/24 03:18
I&O
10/18/24 10/19/24 10/20/24
06:59 06:59 06:59
Intake Total 4040 / 4040
Balance 4040 / 4040
--- NOTE | 2024-10-19 11:12 | W.PN.ID1 ---
Date of Service
Date of Service: October 19, 2024
Today's Communication
See below.
Assessment / Plan
# Right 5th toe diabetic ulcer with infection and purulent cellulitis
# S. aureus bacteremia
# Fever
- arterial duplex improved compared to previous
- repeat blood cx's
- TTE
- Podiatry debrided toe at bedside
- 10/19 MRI: early osteomyelitis of the fifth digit distal phalanx
- Continue Zosyn
- DC Vancomycin
- Follow temps/wbc.
# Conditions ADVANCE SCOUT
Diabetes mellitus type 2
neuropathy
Bilateral Charcot arthropathy
Hypothyroidism
Migraine headaches
Class III obesity BMI 49
Sleep apnea on CPAP
History of left foot ORIF
Uterine cancer status post hysterectomy
Ventral hernia repair
Cholecystectomy
Chief Complaint
-: Fever and Cellulitis
Subjective / Review of Systems
+ fever/chills last night
Vital Signs / Physical Exam
Vital Signs
Vital Signs
Temp Pulse Resp BP Pulse Ox
99.1 F 82 16 144/75 93
10/19/24 07:00 10/19/24 07:00 10/19/24 07:00 10/19/24 07:00 10/19/24 07:00
Selected Entries
10/18/24
15:07 10/18/24
17:04
Temp 101.4 F H 101.4 F H
Physical Exam
Constitutional: No Acute Distress
Cardiovascular: Regular Rate and S1/S2
Pulmonary: Clear
Gastrointestinal: Soft, Non Tender and Non Distended
Extremities: Edema
Wound: Other (right foot dressing in place)
Neurological: AO x 3
Objective Data
Lab Data
Lab Results
10/19/24 06:54
10/19/24 06:54
Estimated Creat Clear 80 ml/min 10/19/24 06:54
Lactic Acid 1.4 mmol/L (0.7-2.0) 10/18/24 01:42
Total Bilirubin 1.4 mg/dl (0.2-1.3) H 10/18/24 01:21
AST 30 U/L (14-36) 10/18/24 01:21
ALT 20 U/L (0-35) 10/18/24 01:21
Alkaline Phosphatase 92 U/L (38-126) 10/18/24 01:21
Most recent labs reviewed.
Micro Results:
10/19/24 10:50 Blood Culture - Pending
Blood/Venous
10/18/24 01:42 Blood Culture - Preliminary
Blood/Venous Staphylococcus aureus
Gram Stain - Preliminary
10/18/24 09:12 Blood Culture - Preliminary
Blood/Venous No Growth in 24 hours- Final report to follow
10/18/24 16:19 Anaerobic Culture - Pending
Foot - Right
10/18/24 16:12 Wound Culture - Pending
Ulcer Gram Stain - Pending
10/19/24 MRI RLE: Findings suggesting early osteomyelitis of the fifth digit distal phalanx. No MR evidence for septic arthritis.
10/18/24 R foot XRAY: No gross acute focal cortical bony destructive process.
[2024-10-19 11:58] LABS: Glucose - Point of Care 273 mg/dl (70-99)
--- NOTE | 2024-10-19 12:06 | CM ---
Reviewed the chart notes and spoke with the patient at the bedside. Discussed discharge plans. Patient would like to discharge to home with VN services and if needing IV abx she would feel comfortable administering it herself since she has done it
in the past. CM continues to be available to patient/family and is monitoring medical plan for needs at discharge.
Plan: Discharge plans will depend on the patient's progress.
[2024-10-19] MEDS: NORVASC 2.5 MG PO ×2 (12:59→19:39)
[2024-10-19] MEDS: BACTROBAN 2% OINTMENT 1 APPLIC TOPICAL (12:59)
[2024-10-19] MEDS: DESENEX/MITRAZOL/ZEASORB 1 APPLIC TOPICAL ×2 (13:00→19:41)
[2024-10-19] MEDS: NOVOLOG FLEXPEN-MODERATE RESISTANCE 5 UNITS SC (13:02)
[2024-10-19 15:16] LABS: Glycohemoglobin (HgbA1c) 8.5 % (4.0-5.6)
[2024-10-19] MEDS: NOVOLOG FLEXPEN 3 UNITS SC (17:09)
[2024-10-19] MEDS: NOVOLOG FLEXPEN-MODERATE RESISTANCE 8 UNITS SC (17:09)
[2024-10-19] MEDS: LANTUS 0.26 UNITS SC (17:10)
[2024-10-19 17:15] LABS: Glucose - Point of Care 264 mg/dl (70-99)
[2024-10-19] MEDS: ZESTRIL 10 MG PO (18:13)
--- NOTE | 2024-10-19 19:26 | W.PN.POD ---
Today's Communication
Today's Communication
I discussed treatment options with Ava today and she would like to proceed with right 5th toe amp to and including met head. Since this is far proximal to area of noted early OM on the distal phalynx a surgical cure will be obtained. The left 5th
toe has reopened and in order to prevent further chance of OM to the 5th toe will proceed with an arthroplasty to the toe with excision of ulcer and primary repair of the wound.
Pt is agreeable to above. All questions answered to her understanding and satisfaction. Nursing art supervisor notified and Pt added to OR schedule for tomorrow
10/20/2024 (around 2p).
NPO orders written. Hold AM dose of Lovenox.
Assessment / Plan
-
NIDDM with DPN-LOPS
NIDDM w/lymphedema and PAD -stable, studies reviewed
Diabetic foot ulcer w/cellulitis and sepsis- on IV abt per ID (MSSA)
Early OM right 5th toe distal phalynx
Subjective
Chief Complaint
sepsis. diabetic foot infection right foot
Subjective
Pt states she feels better with less chills
Objective
Temp Pulse Resp BP Pulse Ox
99.7 F 90 16 171/77 95
10/19/24 15:00 10/19/24 15:00 10/19/24 15:00 10/19/24 15:00 10/19/24 15:00
10/19/24 06:54
10/19/24 06:54
Vital Signs and Lab results were reviewed.
Inspection: Cellulitis (improved)
Review of Systems
Review of Systems
Review of Systems: No Headache, No Nausea, Diarrhea and No Skin Rash
Physical Exam
Physical Exam
General: No Apparent Distress, Comfortable and Conversant
Musculoskeletal: Edema, Right Lower Extrem and Edema, Left Lower Extrem
Skin: Warm and Neurotrophic Ulcer (right and left 5th toes and right 5th met head. cellulitis improved. wounds now granular, no odor or purulence, no signs of infection)
Neuro: AO x 3 and Protective Sensation Absent
Vascular: Capillary Refill Intact and Skin Temperature Warm to Warm
Dorsalis Pedis: Diminished
Posterior Tibialis: Diminished
[2024-10-19] MEDS: FLUSH (NSS) 2 FLUSH IV (19:39)
[2024-10-19 21:25] LABS: Glucose - Point of Care 258 mg/dl (70-99)
[2024-10-20] VITALS (11 sets, daily range): BP systolic 146–174; BP diastolic 69–87; BMI 49.2
[2024-10-20] MEDS: ZOSYN 50 IV ×2 (01:59→08:56)
[2024-10-20] MEDS: NSS 1000 IV (04:04)
[2024-10-20 06:10] LABS: Glucose - Point of Care 150 mg/dl (70-99)
[2024-10-20] MEDS: NOVOLOG FLEXPEN-MODERATE RESISTANCE 1 UNITS SC (06:12)
[2024-10-20 06:37] LABS: Hematocrit 28.5 % (37.0-47.0); Hemoglobin 9.4 g/dL (12.0-16.0); Mean Corp Hgb Conc. 33.0 g/dL (33.0-37.0); Mean Corpuscular Volume 81.7 fL (81.0-99.0); Platelet Count 163 10^3/uL (130-400); Red Cell Dist. Width 15.3 % (11.5-14.5)
[2024-10-20 07:04] LABS: Blood Urea Nitrogen 15 mg/dl (7-17); Calcium 7.9 mg/dl (8.4-10.2); Carbon Dioxide 28 mmol/L (22-30); Chloride 106 mmol/L (98-107); Estimated Creatinine Clearance 74 ml/min; Glucose 144 mg/dl (70-99); Potassium 4.1 mmol/L (3.5-5.1); Sodium 136 mmol/L (135-145); eGFR 51.82
[2024-10-20] MEDS: NOVOLOG FLEXPEN SC (08:14)
--- NOTE | 2024-10-20 08:41 | W.PN.HOSP.TC ---
Today's Communication/Plan
-
Antibiotics switched to Ancef
Surgery today with podiatry
NPO till surgery
AM labs -- monitor renal function
Monitor blood pressure
Assessment / Plan
Assessment / Plan
Physical Exam
General: Not in acute distress
HEENT: Normocephalic. Moist mucous membranes
Respiratory: Other (Decreased at bases - otherwise clear)
Cardiac: S1/S2, Regular Rhythm and Murmur (II/ KURT)
GI: Soft, Non Tender, Non Distended and Normal Bowel Sounds
Musculoskeletal: Other (b/l LE edema. R foot with dressing over lateral aspect of the foot. R lower leg warm with mild erythema.)
Neuro: AAO x 3
Assessment/Plan
59 y/o female with past medical history significant for Charcot foot, DM-II, morbid obesity and DIONNA who presented to [facility] ED complaining of right foot wound. Patient stated that she has Charcot foot bilaterally and has been followed by Podiatry for
foot wounds on either foot since February 2024. Most recently, her L foot is healing very well and most of the wound care focus has been on a wound on the lateral aspect of the R foot. She is seen by Podiatry every two weeks for evaluation. Family
assists her with dressing changes at home daily. Patient stated that she felt chilled the day before coming in, and thought it was due to sitting near the AC unit. On 10/17/24, she felt fatigued and generally poor. Her son changed her dressing and
a large amount of grossly purulent discharge was expressed from the wound. Patient stated she had headache, dizziness, and chills. She called her robotics engineer Dr. Levin and was advised to present to the ED for further evaluation.
Right 5th toe diabetic ulcer with infection and purulent cellulitis
Early osteomyelitis of the right fifth digit distal phalanx as per MRI 10/19/24
S. aureus bacteremia
Sepsis secondary to the above
Charcot Joint
- Patient presented with tachycardia, tachypnea and right foot wound with purulent discharge.
- MRI of affected area showed early osteomyelitis of the fifth digit distal phalanx
- Arterial Duplex study actually better than prior
- Vancomycin and Zosyn stopped.
- Now on Ancef which patient will need to take for AT LEAST ~2 weeks (ID submitted infusion sheet to ed case manager)
- Transthoracic echo showed no vegetations
- Repeat blood cultures negative so far
- Podiatry evaluation for additional recommendations - podiatry debrided toe at bedside
- 10/20/24: to OR for partial amp, and debridement
- ID consulted
- Possible Discharge Wednesday10/23/24 with PICC line placement then
Suspected Acute Kidney Injury
- Baseline Cr per outside emanations analysis technician at [facility] is 0.9-1.1 but it was 1.47 at the last visit in May 2024 and emanations analysis technician wanted patient to address risk factors to bring the Cr back down to 0.9 to 1.1, as per patient
- IV fluids were given -- patient will likely get some IV fluids prince-op today
- Lisinopril resumed on 10/19/24, but Cr bumped up again, so held Lisinopril again (can increase/titrate Amlodipine instead)
- Continue to hold outpatient Lasix (which patient's takes for B/L LE swelling) -- see below
Hypertension
- PRN Hydralazine added
- Added small dose Amlodipine 2.5 mg BID (will increase as needed)
- Continue to hold home Lisinopril given concern for ANISA (Lisinopril resumed on 10/19/24, but Cr bumped up again to 1.2, so hold Lisinopril (can increase Amlodipine instead))
DM-II
- Held premeal and sliding scale Insulin for now given surgery/NPO 10/20/24 -- depending on glucose readings, can resume
- Goal glucose in hospital 140-180, will strive to achieve that goal but will also need to prevent hypoglycemia -- reduced basal insulin to prevent post-op hypoglycemia as patient has been NPO for surgery and uncertain how intake will be post-op
Chronic Lymphedema
- Stable at this time
- Hold diuretic regimen acutely given sepsis. Patient's lower extremity swelling has actually improved despite holding Lasix and starting Amlodipine.
Morbid Obesity
DIONNA on CPAP
- Affects all aspects of care.
- Encourage healthy diet and increased activity with goal of weight loss.
- Continue nightly PAP therapy.
DVT Prophylaxis: Lovenox
Code Status: Full Code
Anticipated Discharge: > 48 hours
Subjective/Interval History
-
Date of Service: October 20, 2024
Patient was seen and examined. She reported doing okay, denied any new complaints. Chronic swelling in legs getting better, according to her.
Objective Data
-
Labs:
Laboratory Results
10/20/24
05:19
WBC 6.7
Hgb 9.4 L
Hct 28.5 L
Plt Count 163
Sodium 136
Potassium 4.1
Chloride 106
Carbon Dioxide 28
BUN 15
Creatinine 1.2 H
Glucose 144 H
Calcium 7.9 L
Vital Signs:
Vital Signs
Temp Pulse Resp BP Pulse Ox
99.3 F 88 16 167/80 99
10/20/24 03:33 10/20/24 03:33 10/20/24 03:33 10/20/24 03:33 10/20/24 03:33
I&O
10/19/24 10/20/24 10/21/24
06:59 06:59 06:59
Intake Total 4040 / 4040 720 / 720 1200 / 1200
Balance 4040 / 4040 720 / 720 1200 / 1200
[2024-10-20] MEDS: CRESTOR 40 MG PO (08:55)
[2024-10-20] MEDS: NORVASC 2.5 MG PO ×2 (08:55→22:40)
[2024-10-20] MEDS: ZETIA 10 MG PO (08:55)
[2024-10-20] MEDS: DESENEX/MITRAZOL/ZEASORB 1 APPLIC TOPICAL (08:58)
[2024-10-20] MEDS: SYNTHROID 50 MCG PO (08:58)
[2024-10-20] MEDS: BACTROBAN 2% OINTMENT TOPICAL (08:59)
--- NOTE | 2024-10-20 11:21 | CM ---
Reviewed the chart notes. Patient expected to go to OR today for OM to the 5th toe with an arthroplasty to the toe. CM continues to be available to patient/family and is monitoring medical plan for needs at discharge.
Plan: Discharge plans will depend on the patient's progress.
[2024-10-20 12:26] LABS: Glucose - Point of Care 127 mg/dl (70-99)
--- NOTE | 2024-10-20 12:50 | W.PN.ID1 ---
Date of Service
Date of Service: October 20, 2024
Today's Communication
Deescalate Zosyn to cefazolin.
Assessment / Plan
# Acute osteo and purulent cellulitis of right 5th toe diabetic ulcer
# S. aureus bacteremia x 2sets, foot source
# Fever - resolved
- 10/19 MRI: early osteomyelitis of the fifth digit distal phalanx
- arterial duplex improved compared to previous
- repeat blood cx's neg to date
- TTE: no vege
- 10/20 to OR for partial amp, and debridement
- DC Zosyn
- Cefazolin 2g IV q8h x 2 weeks, at least through 11/05/24
Infusion sheet submitted to behavioral health case manager.
Place midline on Wednesday, if blood cx's remain negative.
# Conditions [employer]
Diabetes mellitus type 2
neuropathy
Bilateral Charcot arthropathy
Hypothyroidism
Migraine headaches
Class III obesity BMI 49
Sleep apnea on CPAP
History of left foot ORIF
Uterine cancer status post hysterectomy
Ventral hernia repair
Cholecystectomy
Chief Complaint
-: Fever and Cellulitis
Subjective / Review of Systems
No further chills.
Vital Signs / Physical Exam
Vital Signs
Vital Signs
Temp Pulse Resp BP Pulse Ox
98.2 F 78 18 168/74 95
10/20/24 11:00 10/20/24 11:00 10/20/24 11:00 10/20/24 11:00 10/20/24 11:00
Physical Exam
Constitutional: No Acute Distress
Cardiovascular: Regular Rate and S1/S2
Pulmonary: Clear
Gastrointestinal: Soft, Non Tender and Non Distended
Extremities: Edema
Wound: Other (right foot dressing in place)
Neurological: AO x 3
Objective Data
Lab Data
Lab Results
10/20/24 05:19
10/20/24 05:19
Estimated Creat Clear 74 ml/min 10/20/24 05:19
Lactic Acid 1.4 mmol/L (0.7-2.0) 10/18/24 01:42
Total Bilirubin 1.4 mg/dl (0.2-1.3) H 10/18/24 01:21
AST 30 U/L (14-36) 10/18/24 01:21
ALT 20 U/L (0-35) 10/18/24 01:21
Alkaline Phosphatase 92 U/L (38-126) 10/18/24 01:21
Most recent labs reviewed.
Micro Results:
10/19/24 11:32 Blood Culture - Preliminary
Blood/Venous No Growth in 24 hours- Final report to follow
10/19/24 10:50 Blood Culture - Preliminary
Blood/Venous No Growth in 24 hours- Final report to follow
10/18/24 09:12 Blood Culture - Preliminary
Blood/Venous Staphylococcus aureus
Gram Stain - Preliminary
10/18/24 01:42 Blood Culture - Preliminary
Blood/Venous Staphylococcus aureus
Gram Stain - Preliminary
10/18/24 16:19 Anaerobic Culture - Preliminary
Foot - Right Culture pending. Anaerobic cultures are examined after 3
days incubation. Additional information to follow.
10/18/24 16:12 Wound Culture - Preliminary
Ulcer Staphylococcus aureus
Gram Stain - Preliminary
10/19/24 MRI RLE: Findings suggesting early osteomyelitis of the fifth digit distal phalanx. No MR evidence for septic arthritis.
10/18/24 R foot XRAY: No gross acute focal cortical bony destructive process.
[2024-10-20] MEDS: ANCEF 10 IV ×2 (15:32→22:40)
[2024-10-20 17:50] LABS: Glucose - Point of Care 116 mg/dl (70-99)
--- NOTE | 2024-10-20 20:27 | W.SUR.POST ---
Surgical Immediate Post Op
Note
Pre Op Diagnosis: 1- OM right 5th toe, chronic diabetic wound right foot
2-Deformity and chronic wound left 5th toe
Post Op Diagnosis: 1- OM right 5th toe, chronic diabetic wound right foot
2-Deformity and chronic wound left 5th toe
Procedure Performed:
Primary Surgeon: Dr Navid Levin
Secondary Surgeons: NA
Anesthesia: Iv sed w/local block of 10cc 1% lido plain
Estimated Blood Loss: 5 ml,
Hemostasis : Pn ankle tourniquette @ 250mmHg left foot 25 min, right foot 29 min
Fluids: NA
Drains/Shunts: NA
Specimens/Cultures: Bone left 5th toe and right 5th toe/met
Doppler/Duplex/Angio (Y/N): N
Complications: None
Operative Findings: See operative note
[2024-10-20 20:30] LABS: Glucose - Point of Care 109 mg/dl (70-99)
--- NOTE | 2024-10-20 22:00 | PTCARENOTE ---
Rec'd patient from PACU. stable vitals. mild pain no bilateral lower legs. Dressing on bilateral feet CDI. POC reviewed with patient.
[2024-10-20 22:40] LABS: Glucose - Point of Care 181 mg/dl (70-99)
[2024-10-20] MEDS: LANTUS 0.16 UNITS SC (22:40)
[2024-10-20] MEDS: DESENEX/MITRAZOL/ZEASORB TOPICAL (22:41)
[2024-10-20] MEDS: TYLENOL 650 MG PO (22:42)
[2024-10-21] VITALS (8 sets, daily range): BP systolic 134–172; BP diastolic 60–85; BMI 48.8
[2024-10-21] MEDS: SYNTHROID 50 MCG PO (05:11)
[2024-10-21] MEDS: ANCEF 10 IV ×3 (05:12→22:21)
[2024-10-21 07:09] LABS: Hematocrit 30.2 % (37.0-47.0); Hemoglobin 9.9 g/dL (12.0-16.0); Mean Corp Hgb Conc. 32.8 g/dL (33.0-37.0); Mean Corpuscular Volume 82.1 fL (81.0-99.0); Platelet Count 177 10^3/uL (130-400); Red Cell Dist. Width 15.5 % (11.5-14.5)
[2024-10-21 07:46] LABS: Blood Urea Nitrogen 16 mg/dl (7-17); Calcium 8.2 mg/dl (8.4-10.2); Carbon Dioxide 26 mmol/L (22-30); Chloride 107 mmol/L (98-107); Estimated Creatinine Clearance 80 ml/min; Glucose 190 mg/dl (70-99); Potassium 4.0 mmol/L (3.5-5.1); Sodium 139 mmol/L (135-145); eGFR 57.52
[2024-10-21] MEDS: LOVENOX SC (07:58)
[2024-10-21] MEDS: CRESTOR 40 MG PO (08:02)
[2024-10-21] MEDS: TYLENOL 650 MG PO (08:02)
[2024-10-21] MEDS: NORVASC 2.5 MG PO ×2 (08:02→19:38)
[2024-10-21] MEDS: ZETIA 10 MG PO (08:03)
[2024-10-21] MEDS: DESENEX/MITRAZOL/ZEASORB 1 APPLIC TOPICAL ×2 (08:03→22:21)
[2024-10-21] MEDS: APRESOLINE 5 MG IV ×2 (08:03→22:35)
[2024-10-21 08:04] LABS: Glucose - Point of Care 215 mg/dl (70-99)
[2024-10-21] MEDS: NOVOLOG FLEXPEN-MODERATE RESISTANCE 3 UNITS SC (09:09)
[2024-10-21 11:45] LABS: Glucose - Point of Care 298 mg/dl (70-99)
--- NOTE | 2024-10-21 11:49 | W.PN.ID1 ---
Date of Service
Date of Service: October 21, 2024
Today's Communication
Continue antibiotics.
Assessment / Plan
# Acute osteo and purulent cellulitis of right 5th toe diabetic ulcer
- s/p amp (L) 5th toe, amp (R) 5th toe and part met resection
# S. aureus bacteremia x 2sets, foot source
# Fever - resolved
- 10/19 MRI: early osteomyelitis of the fifth digit distal phalanx
- arterial duplex improved compared to previous
- repeat blood cx's neg to date
- TTE: no vege
- 10/20 to OR for partial amp, and debridement
- DC Zosyn
- Cefazolin 2g IV q8h x 2 weeks, at least through 11/05/24
Infusion sheet submitted to case managers.
Place midline on Wednesday, if blood cx's remain negative.
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
Diabetes mellitus type 2
neuropathy
Bilateral Charcot arthropathy
Hypothyroidism
Migraine headaches
Class III obesity BMI 49
Sleep apnea on CPAP
History of left foot ORIF
Uterine cancer status post hysterectomy
Ventral hernia repair
Cholecystectomy
Chief Complaint
-: Fever, Cellulitis and Bacteremia
Subjective / Review of Systems
Review of Systems: No Fever and No Chills
Vital Signs / Physical Exam
Vital Signs
Vital Signs
Temp Pulse Resp BP Pulse Ox
99.1 F 90 20 158/60 97
10/21/24 11:15 10/21/24 11:15 10/21/24 11:15 10/21/24 11:15 10/21/24 11:15
Physical Exam
Constitutional: No Acute Distress
Cardiovascular: Regular Rate and S1/S2
Pulmonary: Clear
Gastrointestinal: Soft, Non Tender and Non Distended
Extremities: Edema
Wound: Other (B/L foot dressings in place)
Neurological: AO x 3
Psychological: Calm
Objective Data
Lab Data
Lab Results
10/21/24 06:36
10/21/24 06:36
Estimated Creat Clear 80 ml/min 10/21/24 06:36
Lactic Acid 1.4 mmol/L (0.7-2.0) 10/18/24 01:42
Total Bilirubin 1.4 mg/dl (0.2-1.3) H 10/18/24 01:21
AST 30 U/L (14-36) 10/18/24 01:21
ALT 20 U/L (0-35) 10/18/24 01:21
Alkaline Phosphatase 92 U/L (38-126) 10/18/24 01:21
Most recent labs reviewed.
Micro Results:
10/19/24 11:32 Blood Culture - Preliminary
Blood/Venous No Growth in 48 hours- Final report to follow
10/19/24 10:50 Blood Culture - Preliminary
Blood/Venous No Growth in 48 hours- Final report to follow
10/18/24 01:42 Blood Culture - Preliminary
Blood/Venous Staphylococcus aureus
Gram Stain - Preliminary
10/18/24 16:12 Wound Culture - Preliminary
Ulcer S aureus-Methicillin Sensitive
Diptheroids
Gram Stain - Preliminary
10/18/24 09:12 Blood Culture - Preliminary
Blood/Venous Staphylococcus aureus
Gram Stain - Preliminary
10/18/24 16:19 Anaerobic Culture - Preliminary
Foot - Right Culture pending. Anaerobic cultures are examined after 3
days incubation. Additional information to follow.
10/19/24 MRI RLE: Findings suggesting early osteomyelitis of the fifth digit distal phalanx. No MR evidence for septic arthritis.
10/18/24 R foot XRAY: No gross acute focal cortical bony destructive process.
[2024-10-21] MEDS: BACTROBAN 2% OINTMENT 1 APPLIC TOPICAL (12:48)
[2024-10-21 12:55] LABS: Glucose - Point of Care 263 mg/dl (70-99)
[2024-10-21] MEDS: NOVOLOG FLEXPEN 3 UNITS SC (12:55)
[2024-10-21] MEDS: NOVOLOG FLEXPEN-MODERATE RESISTANCE 5 UNITS SC (12:55)
--- NOTE | 2024-10-21 14:24 | W.PN.HOSP.TC ---
Today's Communication/Plan
-
Adjust insulin
Assessment / Plan
Assessment / Plan
Gen-AAOx3, NAD
HEENT-NC, AT, anicteric, clear oral mm
Neck-supple
CV-reg, no M, +S1/S2
Lungs-clear B/L
Abd-soft, NT, ND
Ext-no edema
Musculoskeletal-no cyanosis, clubbing, bilateral feet dressings intact
Skin-warm and dry
Neuro-grossly non-focal
Psych-calm, cooperative
Sepsis due to acute osteomyelitis/cellulitis -sepsis present on admission. Admission blood culture shows Staph aureus, sensitivity pending.
Repeat cultures have cleared. Currently on IV cefazolin.
Acute right fifth toe osteomyelitis/purulent cellulitis -podiatry following, underwent right fifth ray amputation with excision of ulcer and primary repair, 10/20. In addition underwent left fifth toe arthroplasty with excision of ulcer and repair.
Charcot Joint
Suspected Acute Kidney Injury
- Baseline Cr per outside supervisory aide at [facility] is 0.9-1.1 but it was 1.47 at the last visit in May 2024 and supervisory aide wanted patient to address risk factors to bring the Cr back down to 0.9 to 1.1, as per patient
Continue to hold lisinopril, Lasix.
Essential hypertension
- PRN Hydralazine added
- Added small dose Amlodipine 2.5 mg BID (will increase as needed)
- Continue to hold home Lisinopril given concern for ANISA (Lisinopril resumed on 10/19/24, but Cr bumped up again to 1.2, so hold Lisinopril (can increase Amlodipine instead))
DM2 with hyperglycemia -hemoglobin A1c 8.5%. Glucose 190 this morning. Increase Lantus to 20 units at bedtime, will increase NovoLog to 6 units AC. Reduce corrective scale to low resistance.
Chronic Lymphedema
- Stable at this time
- Hold diuretic regimen acutely given sepsis. Patient's lower extremity swelling has actually improved despite holding Lasix and starting Amlodipine.
Hypothyroidism -continue levothyroxine.
Hyperlipidemia -rosuvastatin.
Morbid Obesity due to excess calories
DIONNA on CPAP
- Continue nightly PAP therapy.
DVT Prophylaxis: Lovenox
Code Status: Full Code
Anticipated Discharge: > 48 hours
Subjective/Interval History
-
Date of Service: October 21, 2024
Patient seen and examined, no complaints.
Objective Data
-
Labs:
Laboratory Results
10/21/24
06:36
WBC 6.1
Hgb 9.9 L
Hct 30.2 L
Plt Count 177
Sodium 139
Potassium 4.0
Chloride 107
Carbon Dioxide 26
BUN 16
Creatinine 1.1 H
Glucose 190 H
Calcium 8.2 L
Vital Signs:
Vital Signs
Temp Pulse Resp BP Pulse Ox
99.1 F 90 20 158/60 97
10/21/24 11:15 10/21/24 11:15 10/21/24 11:15 10/21/24 11:15 10/21/24 11:15
I&O
10/20/24 10/21/24 10/22/24
06:59 06:59 06:59
Intake Total 720 / 720 1779
Balance 720 / 720 1779
Review of Systems
-
History Source: Patient
All other systems: Reviewed and negative
[2024-10-21 16:23] LABS: Glucose - Point of Care 273 mg/dl (70-99)
[2024-10-21] MEDS: NOVOLOG FLEXPEN-LOW RESISTANCE 3 UNITS SC (16:33)
[2024-10-21] MEDS: NOVOLOG FLEXPEN 6 UNITS SC (16:34)
--- NOTE | 2024-10-21 16:47 | W.PN.UPDATE ---
Update Note
Progress Note Update
POD #1 S/P Partial right 5th ray amputation and arthroplasty 5th toe left, with excision and primary repair of ulcerations
Ava is sitting up and feels well, denies F/C/N/V/D,SOB/CP/ malaise or LAUREANO
She is hypertensive- but denies any symptoms and anemia (little blood loss intraop- tourniquette used and when let down there was approx 5mL EBL
May WBAT in post op shoes
Continue ti offload lateral sides of feet while in bed/chair
Vital Signs / Labs
-
Vital Signs and Labs:
Temp Pulse Resp BP Pulse Ox
98.6 F 90 20 157/78 97
10/21/24 15:30 10/21/24 15:30 10/21/24 15:30 10/21/24 16:40 10/21/24 15:30
10/21/24 06:36
10/21/24 06:36
10/20/24 10/20/24 10/20/24
17:48 20:28 22:39
RBC
Hgb
Hct
MCH
MCHC
RDW
Creatinine
Glucose
Calcium
POC Glucose 116 H 109 H 181 H
10/21/24 10/21/24 10/21/24
06:36 08:02 11:45
RBC 3.68 L
Hgb 9.9 L
Hct 30.2 L
MCH 26.9 L
MCHC 32.8 L
RDW 15.5 H
Creatinine 1.1 H
Glucose 190 H
Calcium 8.2 L
POC Glucose 215 H 298 H
10/21/24 10/21/24
12:54 16:22
RBC
Hgb
Hct
MCH
MCHC
RDW
Creatinine
Glucose
Calcium
POC Glucose 263 H 273 H
[2024-10-21] MEDS: LOVENOX 40 MG SC (19:38)
[2024-10-21 21:38] LABS: Glucose - Point of Care 213 mg/dl (70-99)
[2024-10-21] MEDS: LANTUS 0.2 UNITS SC (22:22)
[2024-10-22] VITALS (8 sets, daily range): BP systolic 122–166; BP diastolic 53–79; PULSE 84–85; O2SAT 96–97; BMI 48.9
[2024-10-22 05:07] LABS: Hematocrit 29.0 % (37.0-47.0); Hemoglobin 9.6 g/dL (12.0-16.0); Mean Corp Hgb Conc. 33.1 g/dL (33.0-37.0); Mean Corpuscular Volume 81.2 fL (81.0-99.0); Platelet Count 170 10^3/uL (130-400); Red Cell Dist. Width 14.9 % (11.5-14.5)
[2024-10-22] MEDS: ANCEF 10 IV ×3 (05:14→21:59)
[2024-10-22 05:29] LABS: Blood Urea Nitrogen 15 mg/dl (7-17); Calcium 8.6 mg/dl (8.4-10.2); Carbon Dioxide 26 mmol/L (22-30); Chloride 108 mmol/L (98-107); Estimated Creatinine Clearance 88 ml/min; Glucose 145 mg/dl (70-99); Potassium 4.0 mmol/L (3.5-5.1); Sodium 137 mmol/L (135-145); eGFR > 60.00
[2024-10-22] MEDS: SYNTHROID 50 MCG PO (05:30)
[2024-10-22 07:24] LABS: Glucose - Point of Care 158 mg/dl (70-99)
--- NOTE | 2024-10-22 08:59 | W.PN.HOSP.TC ---
Today's Communication/Plan
-
Increase amlodipine
PT/OT
Continue antibiotics
Assessment / Plan
Assessment / Plan
Gen-AAOx3, NAD
HEENT-NC, AT, anicteric, clear oral mm
Neck-supple
CV-reg, no M, +S1/S2
Lungs-clear B/L
Abd-soft, NT, ND
Ext-no edema
Musculoskeletal-no cyanosis, clubbing, bilateral feet dressings intact
Skin-warm and dry
Neuro-grossly non-focal
Psych-calm, cooperative
Sepsis due to acute osteomyelitis/cellulitis -sepsis present on admission. Admission blood culture shows Staph aureus, sensitivity pending.
Repeat cultures have cleared. Currently on IV cefazolin.
Acute right fifth toe osteomyelitis/purulent cellulitis -podiatry following, underwent right fifth ray amputation with excision of ulcer and primary repair, 10/20. In addition underwent left fifth toe arthroplasty with excision of ulcer and repair.
Charcot Joint
ANISA -Baseline Cr per outside barrel washer machine at [facility] is 0.9-1.1 but it was 1.47 at the last visit in May 2024 and barrel washer machine wanted patient to address risk factors to bring the Cr back down to 0.9 to 1.1, as per patient
Creatinine down from 1.2-1.0 today.
Continue to hold lisinopril, Lasix.
Essential hypertension -high pressures noted. Discussed with nursing to increase the size of her cuff as her arms are larger than normal.
Increase amlodipine to 10 mg daily. Lisinopril on hold for ANISA.
DM2 with hyperglycemia -hemoglobin A1c 8.5%. Glucose 145 this morning, 213 last night. Continue Lantus 20 units at bedtime, NovoLog 6 units AC.
Chronic Lymphedema
- Stable at this time
- Hold diuretic regimen acutely given sepsis. Patient's lower extremity swelling has actually improved despite holding Lasix and starting Amlodipine.
Hypothyroidism -continue levothyroxine.
Hyperlipidemia -rosuvastatin.
Morbid Obesity due to excess calories
DIONNA on CPAP
- Continue nightly PAP therapy.
DVT Prophylaxis: Lovenox
Code Status: Full Code
PT/OT -weight-bear as tolerated using surgical shoes on both feet as per podiatry.
Anticipated Discharge: > 48 hours
Subjective/Interval History
-
Date of Service: October 22, 2024
Patient seen and examined. No complaints.
Objective Data
-
Labs:
Laboratory Results
10/22/24
04:55
WBC 6.7
Hgb 9.6 L
Hct 29.0 L
Plt Count 170
Sodium 137
Potassium 4.0
Chloride 108 H
Carbon Dioxide 26
BUN 15
Creatinine 1.0
Glucose 145 H
Calcium 8.6
Vital Signs:
Vital Signs
Temp Pulse Resp BP Pulse Ox
98.8 F 76 18 156/76 97
10/22/24 07:30 10/22/24 07:30 10/22/24 07:30 10/22/24 07:30 10/22/24 07:30
I&O
10/21/24 10/22/24 10/23/24
06:59 06:59 06:59
Intake Total 1779 480 / 480
Balance 1780 / 1780 480 / 480
Review of Systems
-
History Source: Patient
All other systems: Reviewed and negative
[2024-10-22] MEDS: NOVOLOG FLEXPEN-LOW RESISTANCE 1 UNITS SC ×2 (09:54→13:11)
[2024-10-22] MEDS: BACTROBAN 2% OINTMENT 1 APPLIC TOPICAL (09:55)
[2024-10-22] MEDS: ZETIA 10 MG PO (09:55)
[2024-10-22] MEDS: CRESTOR 40 MG PO (09:55)
[2024-10-22] MEDS: LOVENOX 40 MG SC ×2 (09:56→20:54)
[2024-10-22] MEDS: DESENEX/MITRAZOL/ZEASORB 1 APPLIC TOPICAL ×2 (09:56→21:00)
[2024-10-22] MEDS: NORVASC 10 MG PO (09:59)
[2024-10-22] MEDS: NOVOLOG FLEXPEN 6 UNITS SC ×3 (09:59→18:08)
[2024-10-22] MEDS: NORVASC PO (10:01)
--- NOTE | 2024-10-22 10:26 | W.PN.ID1 ---
Date of Service
Date of Service: October 22, 2024
Today's Communication
Continue current antibiotics.
Assessment / Plan
# Acute osteo and purulent cellulitis of right 5th toe diabetic ulcer
- s/p amp (L) 5th toe, amp (R) 5th toe and part met resection (10/20/2024)
# S. aureus bacteremia x 2 sets, foot source
# Fever - resolved
- 10/19 MRI: early osteomyelitis of the fifth digit distal phalanx
- arterial duplex improved compared to previous
- repeat blood cx's neg to date
- TTE: no vege
- Cefazolin 2g IV q8h x 2 weeks, at least through 11/05/24
- Infusion sheet submitted to casework manager.
- Tentative midline placement on Wednesday, if blood cx's remain negative.
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
Diabetes mellitus type 2
neuropathy
Bilateral Charcot arthropathy
Hypothyroidism
Migraine headaches
Class III obesity BMI 49
Sleep apnea on CPAP
History of left foot ORIF
Uterine cancer status post hysterectomy
Ventral hernia repair
Cholecystectomy
Chief Complaint
-: Fever, Cellulitis and Bacteremia
Subjective / Review of Systems
Review of Systems: No Fever and No Chills
Vital Signs / Physical Exam
Vital Signs
Vital Signs
Temp Pulse Resp BP Pulse Ox
98.8 F 76 18 156/76 97
10/22/24 07:30 10/22/24 07:30 10/22/24 07:30 10/22/24 07:30 10/22/24 07:30
Physical Exam
Constitutional: No Acute Distress, Comfortable and Non-toxic
Eyes: Sclera Anicteric
Cardiovascular: Regular Rate and S1/S2
Pulmonary: Clear
Gastrointestinal: Soft, Non Tender and Non Distended
Extremities: Edema
Wound: Other (B/L foot dressings in place)
Neurological: AO x 3
Psychological: Calm
Objective Data
Lab Data
Lab Results
10/22/24 04:55
10/22/24 04:55
Estimated Creat Clear 88 ml/min 10/22/24 04:55
Lactic Acid 1.4 mmol/L (0.7-2.0) 10/18/24 01:42
Total Bilirubin 1.4 mg/dl (0.2-1.3) H 10/18/24 01:21
AST 30 U/L (14-36) 10/18/24 01:21
ALT 20 U/L (0-35) 10/18/24 01:21
Alkaline Phosphatase 92 U/L (38-126) 10/18/24 01:21
Most recent labs reviewed.
Micro Results:
10/18/24 09:12 Blood Culture - Preliminary
Blood/Venous S aureus-Methicillin Sensitive
Gram Stain - Preliminary
10/18/24 01:42 Blood Culture - Preliminary
Blood/Venous S aureus-Methicillin Sensitive
Gram Stain - Preliminary
10/18/24 16:19 Anaerobic Culture - Preliminary
Foot - Right Culture pending. Anaerobic cultures are examined after 3
days incubation. Additional information to follow.
10/19/24 11:32 Blood Culture - Preliminary
Blood/Venous No Growth in 48 hours- Final report to follow
10/19/24 10:50 Blood Culture - Preliminary
Blood/Venous No Growth in 48 hours- Final report to follow
10/18/24 16:12 Wound Culture - Preliminary
Ulcer S aureus-Methicillin Sensitive
Diptheroids
Gram Stain - Preliminary
10/19/24 MRI RLE: Findings suggesting early osteomyelitis of the fifth digit distal phalanx. No MR evidence for septic arthritis.
10/18/24 R foot XRAY: No gross acute focal cortical bony destructive process.
--- NOTE | 2024-10-22 12:15 | W.PN.UPDATE ---
Update Note
Progress Note Update
Pt is POD #2 S/P right 5th ray amp and arthroplasty left 5th toe
Ava is doing well- denies F/C/N/V/LAUREANO/Malaise/CP/SOB/leg pain
Exam-Surgical dressings removed- no erythema, edema or signs of infection, incisions are well co apted to both right and left foot
A/P- S/P partial 5th ray amputation right with excision and primary repair of chronic ulcer right foot, left 5th toe arthroplasty with excision of ulceration and primary repair-healing well
-discussed with Ava that she must stay off of the lateral sides of her feet by sleeping on her back with pillows under calves
-May WBAT in [employer] shoe (wrong size disp to the right foot- will await for correct larger size prior to walking) with walker assist
Follow up schedule in my office on Wednesday10/27/2024, dressing may be left intact clean and dry until then
[2024-10-22 13:02] LABS: Glucose - Point of Care 187 mg/dl (70-99)
[2024-10-22 17:02] LABS: Glucose - Point of Care 232 mg/dl (70-99)
[2024-10-22] MEDS: NOVOLOG FLEXPEN-LOW RESISTANCE 2 UNITS SC (18:07)
[2024-10-22] MEDS: LANTUS 0.2 UNITS SC (18:16)
[2024-10-22 21:33] LABS: Glucose - Point of Care 222 mg/dl (70-99)
[2024-10-23 03:03] VITALS: BP 140/65
[2024-10-23 05:58] VITALS: BMI 49.3
[2024-10-23] MEDS: ANCEF 10 IV ×2 (06:03→14:40)
[2024-10-23] MEDS: SYNTHROID 50 MCG PO (06:03)
[2024-10-23 07:27] LABS: Blood Urea Nitrogen 19 mg/dl (7-17); Calcium 8.6 mg/dl (8.4-10.2); Carbon Dioxide 26 mmol/L (22-30); Chloride 107 mmol/L (98-107); Estimated Creatinine Clearance 89 ml/min; Glucose 139 mg/dl (70-99); Potassium 4.6 mmol/L (3.5-5.1); Sodium 137 mmol/L (135-145); eGFR > 60.00
[2024-10-23 07:30] VITALS: BP 161/73
[2024-10-23 07:42] LABS: Glucose - Point of Care 154 mg/dl (70-99)
[2024-10-23] MEDS: NOVOLOG FLEXPEN 6 UNITS SC (07:43)
[2024-10-23] MEDS: NOVOLOG FLEXPEN-LOW RESISTANCE 1 UNITS SC ×2 (07:44→13:28)
[2024-10-23] MEDS: LOVENOX 40 MG SC (07:45)
[2024-10-23] MEDS: NORVASC 10 MG PO (07:45)
[2024-10-23] MEDS: ZETIA 10 MG PO (07:45)
[2024-10-23] MEDS: CRESTOR 40 MG PO (07:45)
[2024-10-23] MEDS: DESENEX/MITRAZOL/ZEASORB 1 APPLIC TOPICAL (07:46)
--- NOTE | 2024-10-23 10:48 | CM ---
Addendum entered by Portia Massey RN 10/23/24 13:28:
Patient informed an agreeable to cost of medication and supplies. Patient's spouse will provide transportation home.
Addendum entered by Portia Massey RN 10/23/24 13:09:
Midline information faxed to [facility]. Cost for patient will be insurance will cover 75% until [id number] is met. Patient today has spend $3400.00. After OOP is met it will be covered 100%.
[facility] customer engagement representative will be out to teach patient IV abx administration this afternoon.
Addendum entered by Portia Massey RN 10/23/24 12:02:
CM referral received for VN. Referral sent to [facility] via [facility].
Addendum entered by Portia Massey RN 10/23/24 11:52:
CM called may [facility] line and spoke with Melva. Per Melva, clinicals received. She requested a copy of the patient's insurance card. Per Melva, they are not able to process with the information provided on face sheet. Awaiting cost analysis.
Original Note:
Reviewed the chart notes and spoke with the patient at the bedside. Call placed to [facility]'s liaison Lili regarding IV abx information that was faxed on Wednesday.
[2024-10-23 12:08] LABS: Glucose - Point of Care 166 mg/dl (70-99)
--- NOTE | 2024-10-23 12:08 | W.PN.HOSP.TC ---
Today's Communication/Plan
-
Discharge
Assessment / Plan
Assessment / Plan
Gen-AAOx3, NAD
HEENT-NC, AT, anicteric, clear oral mm
Neck-supple
CV-reg, no M, +S1/S2
Lungs-clear B/L
Abd-soft, NT, ND
Ext-no edema
Musculoskeletal-no cyanosis, clubbing, bilateral feet dressings intact
Skin-warm and dry
Neuro-grossly non-focal
Psych-calm, cooperative
MSSA Sepsis due to acute osteomyelitis/cellulitis -sepsis present on admission. Sepsis resolved.
TTE 10/19 negative for vegetation.
Repeat cultures have cleared. Currently on IV cefazolin.
Mid-line catheter placed this am for discharge home on IV antibiotics as per ID.
Acute right fifth toe osteomyelitis/purulent cellulitis -podiatry following, underwent right fifth ray amputation with excision of ulcer and primary repair, 10/20. In addition underwent left fifth toe arthroplasty with excision of ulcer and repair.
Charcot Joint
ANISA -Baseline Cr per outside sap plant maintenance consultant at [facility] is 0.9-1.1 but it was 1.47 at the last visit in May 2024 and sap plant maintenance consultant wanted patient to address risk factors to bring the Cr back down to 0.9 to 1.1, as per patient
ANISA resolved.
Essential hypertension -ok to resume Lisinopril & torsemide on discharge. Labs in one week with PCP. Discussed with patient.
DM2 with hyperglycemia -hemoglobin A1c 8.5%. Glucose 139 this morning, 222 last night. Continue Lantus 20 units at bedtime, increase NovoLog 7 units AC.
Chronic Lymphedema
- Stable at this time
- Hold diuretic regimen acutely given sepsis. Patient's lower extremity swelling has actually improved despite holding Lasix and starting Amlodipine.
Hypothyroidism -continue levothyroxine.
Hyperlipidemia -rosuvastatin.
Morbid Obesity due to excess calories
DIONNA on CPAP
- Continue nightly PAP therapy.
DVT Prophylaxis: Lovenox
Code Status: Full Code
PT/OT -weight-bear as tolerated using surgical shoes on both feet as per podiatry.
Dispo -medically stable for discharge home with VN, home care, IV antibiotics.
Follow-up with PCP and podiatry.
32 minutes spent in discharge process.
Anticipated Discharge: Today
Subjective/Interval History
-
Date of Service: October 23, 2024
Patient seen/examined. No complaints.
Objective Data
-
Labs:
Laboratory Results
10/23/24
06:27
Sodium 137
Potassium 4.6
Chloride 107
Carbon Dioxide 26
BUN 19 H
Creatinine 1.0
Glucose 139 H
Calcium 8.6
Vital Signs:
Vital Signs
Temp Pulse Resp BP Pulse Ox
98.3 F 73 16 161/73 96
10/23/24 07:30 10/23/24 07:45 10/23/24 07:30 10/23/24 07:45 10/23/24 07:30
I&O
10/22/24 10/23/24 10/24/24
06:59 06:59 06:59
Intake Total 480 / 480 360 / 360
Balance 480 / 480 360 / 360
Review of Systems
-
History Source: Patient
All other systems: Reviewed and negative
--- NOTE | 2024-10-23 12:20 | W.DS.TRANS ---
DC Summary - World Language Teacher
-
Discharge Instructions:
Discharge Diagnosis/Procedures Sepsis, acute osteomyelitis, cellulitis right
fifth toe, right fifth ray amputation
Diet Diabetic, Carb Controlled
Activity As tolerated
Additional Activity Weightbearing with surgical shoe on both feet
Driving Restrictions As prior to admission
Bathing Restrictions None
Blood Work BMP in one week with your primary care doctor
Other Services VN
Instructions:
Stand-Alone Forms:
Changes to Home Medications: No
Discharge Medications:
DC Medications w/original date entered in [employer]
insulin glargine 100 unit/mL (3 mL) subcutaneous pen (Lantus Solostar U-100 Insulin) 33 unit SC HS Diabetes 07/07/22
insulin lispro 100 unit/mL subcutaneous pen (Humalog KwikPen (U-100) Insulin) 22 unit SC TID Diabetes 07/07/22
levothyroxine 50 mcg tablet 50 mcg PO SUMOWEFRSA Thyroid 07/07/22
lisinopril 20 mg tablet 20 mg PO DAILY Blood Pressure 07/07/22
evolocumab 140 mg/mL subcutaneous pen injector (Repatha SureClick) 140 mg SC Q2W High Cholesterol 10/18/24
ezetimibe 10 mg tablet 10 mg PO DAILY High Cholesterol 10/18/24
levothyroxine 75 mcg tablet (Synthroid) 75 mcg PO TUTH 10/18/24
lisinopril 10 mg tablet 10 mg PO QPM Blood Pressure 10/18/24
rosuvastatin 40 mg tablet 40 mg PO DAILY High Cholesterol 10/18/24
torsemide 20 mg tablet 20 mg PO BID Fluid Retention/Swelling 10/18/24
cefazolin 10 gram solution for injection 2 g IV Q8H #0 ea 10/23/24
Home Medication Changes
Pending Results: No
[2024-10-23] MEDS: NOVOLOG FLEXPEN 7 UNITS SC (13:27)
--- NOTE | 2024-10-23 13:30 | W.PN.ID1 ---
Date of Service
Date of Service: October 23, 2024
Today's Communication
DC home after IV abx teaching this afternoon.
Assessment / Plan
# Acute osteo and purulent cellulitis of right 5th toe diabetic ulcer
- s/p amp (L) 5th toe, amp (R) 5th toe and part met resection (10/20/2024)
# S. aureus (MSSA) bacteremia x 2 sets, foot source
# Fever - resolved
- 10/19 MRI: early osteomyelitis of the fifth digit distal phalanx
- arterial duplex improved compared to previous
- repeat blood cx's neg to date
- TTE: no vege
- Cefazolin 2g IV q8h x 2 weeks, at least through 11/05/24
- Infusion sheet submitted to field nurse case manager.
-Midline in place
# Conditions [employer]
Diabetes mellitus type 2
neuropathy
Bilateral Charcot arthropathy
Hypothyroidism
Migraine headaches
Class III obesity BMI 49
Sleep apnea on CPAP
History of left foot ORIF
Uterine cancer status post hysterectomy
Ventral hernia repair
Cholecystectomy
Chief Complaint
-: Cellulitis and Bacteremia
Subjective / Review of Systems
Feels much improved.
Vital Signs / Physical Exam
Vital Signs
Vital Signs
Temp Pulse Resp BP Pulse Ox
98.3 F 73 16 161/73 96
10/23/24 07:30 10/23/24 07:45 10/23/24 07:30 10/23/24 07:45 10/23/24 07:30
Physical Exam
Constitutional: No Acute Distress
Cardiovascular: Regular Rate and S1/S2
Pulmonary: Clear
Gastrointestinal: Non Tender and Non Distended
Wound: Other (Bilateral foot dressing dry)
Lines: Other (RUE midline)
Objective Data
Lab Data
Lab Results
10/22/24 04:55
10/23/24 06:27
Estimated Creat Clear 89 ml/min 10/23/24 06:27
Lactic Acid 1.4 mmol/L (0.7-2.0) 10/18/24 01:42
Total Bilirubin 1.4 mg/dl (0.2-1.3) H 10/18/24 01:21
AST 30 U/L (14-36) 10/18/24 01:21
ALT 20 U/L (0-35) 10/18/24 01:21
Alkaline Phosphatase 92 U/L (38-126) 10/18/24 01:21
Most recent labs reviewed.
Micro Results:
10/19/24 11:32 Blood Culture - Preliminary
Blood/Venous No Growth in 4 days- Final report to follow
10/19/24 10:50 Blood Culture - Preliminary
Blood/Venous No Growth in 4 days- Final report to follow
10/18/24 16:12 Wound Culture - Final
Ulcer S aureus-Methicillin Sensitive
Diptheroids
Gram Stain - Final
10/18/24 16:19 Anaerobic Culture - Final
Foot - Right NO ANAEROBES ISOLATED
10/18/24 09:12 Blood Culture - Preliminary
Blood/Venous S aureus-Methicillin Sensitive
Gram Stain - Preliminary
10/18/24 01:42 Blood Culture - Preliminary
Blood/Venous S aureus-Methicillin Sensitive
Gram Stain - Preliminary
10/19/24 MRI RLE: Findings suggesting early osteomyelitis of the fifth digit distal phalanx. No MR evidence for septic arthritis.
10/18/24 R foot XRAY: No gross acute focal cortical bony destructive process.
[2024-10-23] MEDS: NOVOLOG FLEXPEN SC ×2 (13:48→16:17)
--- NOTE | 2024-10-23 15:51 | VNURNOTE ---
Home Health Liaison spoke with patient to discuss [facility] nurse/therapy, visits, schedule and homebound status. Patient is agreeable and understands that visits at home will be 2-3 x per week to assess and teach medical management. Patient is aware
that [facility] will contact them for start of care in 1-2 days after discharge from .
[facility] referral accepted in [facility].
--- NOTE | 2024-10-23 15:58 | CM ---
Change in VN services. Patient will have [facility] vs [facility] due to insurance issues.
Plan: Discharge to home today with VN services and [facility] for IV abx. Spouse to provide transportation.
[2024-10-23] MEDS: NOVOLOG FLEXPEN-LOW RESISTANCE SC (16:17)
[2024-10-23 16:33] VITALS: BP 140/67
== END 2024-10-23 17:36 | disposition home health service (06) | DRG 854 ==
LOC: 2 SOUTH 05:01
PROVIDERS: Emergency Medicine; Hospitalist; ADMITTING PHYSICIAN Hospitalist; ATTENDING PHYSICIAN Hospitalist; CONSULT PHYSICIAN Internal Medicine Infectious Disease; CONSULT PHYSICIAN Podiatrist Foot & Ankle Surgery; EMERGENCY PHYSICIAN Emergency Medicine; FAMILY PHYSICIAN Family Medicine
PROC: 0JBQ0ZZ Excision of Right Foot Subcutaneous Tissue and Fascia, Open Approach (ICD-10-PCS; 2024-10-18)
PROC: 0Y6M0ZF Detachment at Right Foot, Partial 5th Ray, Open Approach (ICD-10-PCS; 2024-10-20)
PROC: 0QBR0ZZ Excision of Left Toe Phalanx, Open Approach (ICD-10-PCS; 2024-10-20)
DX: A41.01 Sepsis due to Methicillin susceptible Staphylococcus aureus (principal); L03.115 Cellulitis of right lower limb; M86.171 Other acute osteomyelitis, right ankle and foot; Z68.42 Body mass index [BMI] 45.0-49.9, adult; N17.9 Acute kidney failure, unspecified; E11.621 Type 2 diabetes mellitus with foot ulcer; E11.69 Type 2 diabetes mellitus with other specified complication; E03.9 Hypothyroidism, unspecified; I10 Essential (primary) hypertension; J45.909 Unspecified asthma, uncomplicated; E66.813 Obesity, class 3; E11.610 Type 2 diabetes mellitus with diabetic neuropathic arthropathy; I89.0 Lymphedema, not elsewhere classified; G47.33 Obstructive sleep apnea (adult) (pediatric); G43.909 Migraine, unspecified, not intractable, without status migrainosus; E11.42 Type 2 diabetes mellitus with diabetic polyneuropathy; L97.519 Non-pressure chronic ulcer of other part of right foot with unspecified severity; L97.529 Non-pressure chronic ulcer of other part of left foot with unspecified severity; E11.65 Type 2 diabetes mellitus with hyperglycemia; Q70.31 Webbed toes, right foot; Z91.048 Other nonmedicinal substance allergy status; Z85.42 Personal history of malignant neoplasm of other parts of uterus; Z79.4 Long term (current) use of insulin; Z79.890 Hormone replacement therapy
CPT/HCPCS: 73620; 73630; 73723; 80048; 80053; 80202; 82962; 83036; 83605; 85025; 85027; 87040; 87070; 87075; 87147; 87154; 87186; 87205; 88304; 88305; 93306; 93922; 93925; 97162; 97166; 97530; A9585

== ENCOUNTER 2024-11-29 08:44 | Outpatient (RCR) | payer BC, MEDICARE, SELFPAY | END 2024-11-29 23:59 | disposition home or self-care (01) | LOC: RPT 08:44 | PROVIDERS: ATTENDING PHYSICIAN Family Medicine | DX: I89.0 Lymphedema, not elsewhere classified (principal); R26.81 Unsteadiness on feet; Z73.6 Limitation of activities due to disability; M62.81 Muscle weakness (generalized); R26.2 Difficulty in walking, not elsewhere classified; G62.9 Polyneuropathy, unspecified; R26.89 Other abnormalities of gait and mobility; Z98.890 Other specified postprocedural states; Z89.422 Acquired absence of other left toe(s); Z85.42 Personal history of malignant neoplasm of other parts of uterus | CPT/HCPCS: 97163; 97530 ==

== ENCOUNTER → 2024-12-27 14:50 | Outpatient (REF) | payer BC, MEDICARE, SELFPAY | LOC: WDC 14:50 | PROVIDERS: ATTENDING PHYSICIAN Family Medicine | DX: Z12.31 Encounter for screening mammogram for malignant neoplasm of breast (principal) | CPT/HCPCS: 77063; 77067 ==

== ENCOUNTER 2025-01-03 12:28 | Outpatient (RCR) | payer BC, MEDICARE, SELFPAY | END 2025-01-03 23:59 | disposition home or self-care (01) | LOC: RPT 12:28 | PROVIDERS: ATTENDING PHYSICIAN Family Medicine | DX: I89.0 Lymphedema, not elsewhere classified (principal); R26.81 Unsteadiness on feet; Z73.6 Limitation of activities due to disability; M62.81 Muscle weakness (generalized); R26.2 Difficulty in walking, not elsewhere classified; G62.9 Polyneuropathy, unspecified; R26.89 Other abnormalities of gait and mobility; Z98.890 Other specified postprocedural states; Z89.422 Acquired absence of other left toe(s); Z85.42 Personal history of malignant neoplasm of other parts of uterus | CPT/HCPCS: 97110; 97140; 97530 ==

== ENCOUNTER 2025-01-17 08:28 | Outpatient (RCR) | payer BC, MEDICARE, SELFPAY | END 2025-01-17 23:59 | disposition home or self-care (01) | LOC: RPT 08:28 | PROVIDERS: ATTENDING PHYSICIAN Family Medicine | DX: I89.0 Lymphedema, not elsewhere classified (principal); R26.81 Unsteadiness on feet; Z73.6 Limitation of activities due to disability; M62.81 Muscle weakness (generalized); R26.2 Difficulty in walking, not elsewhere classified; G62.9 Polyneuropathy, unspecified; R26.89 Other abnormalities of gait and mobility; Z98.890 Other specified postprocedural states; Z89.422 Acquired absence of other left toe(s); Z85.42 Personal history of malignant neoplasm of other parts of uterus | CPT/HCPCS: 97110; 97140; 97530 ==

== ENCOUNTER 2025-03-07 07:28 | Outpatient (RCR) | payer BC, MEDICARE, SELFPAY | END 2025-03-07 23:59 | disposition home or self-care (01) | LOC: RPT 07:28 | PROVIDERS: ATTENDING PHYSICIAN Family Medicine | DX: R29.898 Other symptoms and signs involving the musculoskeletal system (principal); R26.89 Other abnormalities of gait and mobility; Z73.6 Limitation of activities due to disability; M62.81 Muscle weakness (generalized); G62.9 Polyneuropathy, unspecified | CPT/HCPCS: 97110; 97112; 97162 ==